=== PATIENT | female | born 1940 | race Caucasian/White ===

== ENCOUNTER 2016-12-16 10:33 | Inpatient (IN) | payer OTHER ==
[2016-12-16] MEDS ORDERED: ASPIRIN PO STA (10:53)
[2016-12-16] MEDS ORDERED: NITROGLYCERIN SL PRN (10:53)
[2016-12-16 11:01] LABS: MANUAL DIFF NEEDED? NO
[2016-12-16 11:05] LABS: BASO% 0.4 % (0.0-0.8); EOS# 0.04 X1000 (0.0-0.7); EOS% 0.5 % (0.0-10.0); HEMATOCRIT 38.8 % (37.0-47.0); LYMPH# 0.55 X1000 (1.2-3.4); LYMPH% 7.2 % (20.5-51.1); MCH 31.8 PG (27-31); MCHC 33.5 g/dL (33-37); MCV 94.9 FL (81-99); MONO# 0.63 X1000 (0.11-0.59); MONO% 8.3 % (1.7-9.3); MPV 10.3 FL (7.4-10.4); NEUT% 83.6 % (42.2-75.2); PLT 226 X1000 (130-400); RBC 4.09 XMIL (4.2-5.4)
[2016-12-16 11:28] LABS: AGAP 13; ALBUMIN 2.8 g/dL (3.5-5.0); ALKALINE PHOSPHATASE 48 U/L (32-104); BUN 23 mg/dL (8-22); CHLORIDE 92 mmol/L (98-107); CK PROFILE 35 U/L (24-173); COSMO 274; GOT 14 U/L (10-30); GPT 6 U/L (10-36); MAGNESIUM 1.6 mg/dL (1.5-2.7); POTASSIUM 3.3 mmol/L (3.5-5.1); SODIUM 133 mmol/L (136-145); TCO2 28 mmol/L (25-35); TOTAL BILIRUBIN 0.64 mg/dL (0.20-1.00); TOTAL PROTEIN 6.9 g/dL (6.3-8.3)
--- NOTE | 2016-12-16 11:40 | PROVIDER DOCUMENTATION ---
HPI-Respiratory General - General Chief Complaint: Shortness of Breath Stated Complaint: Shortness of Breath Time Seen by Provider: 12/16/16 11:09 Source: patient, family Allergies/Adverse Reactions: Patient Allergies Allergy/AdvReac Type Severity Reaction Status Date / Time morphine AdvReac NAUSEA/VOMI Verified 12/08/16 18:09 TING Home Medications: Home Medication List Medication Instructions Recorded Confirmed Last Taken Type Glipizide [Glipizide ER] 10 mg PO DAILY 01/12/15 12/16/16 12/08/16 08:30 History LISINOpril [Prinivil] 20 mg PO DAILY 12/12/15 12/16/16 12/08/16 08:30 History Benzonatate [Tessalon] 100 mg PO TID PRN PRN #20 capsule 12/08/16 12/16/16 Unknown Rx Hydrocodone/Acetaminophen [[place] 1 tab PO TID PRN 12/16/16 12/16/16 Unknown History 5-325 Tablet] Omeprazole [Prilosec] 1 tab PO DAILY 12/16/16 12/16/16 Unknown History - History of Present Illness-Resp Nature of Presenting Problem: patient is a 76 y/o F that presents to the Er after going to [facility] for chemo but was found to be short of breath and o2 saturation in the 70s. patient has lung ca in which it was dx she is on her second round of chemo. patient reports having cough and congestion since diagnosis but in the past week nothing having sputum with it, usually has white bubbling sputum. reports more weakness than normal. denies chest pain. O2 saturation was 86% on RA at triage. Quality of Pain: reports: tightness Severity in ED: reports: moderate Onset/Duration: reports: unsure, 1 week ago Timing: reports: still present, constant Context: reports: recent chemotherapy, multiple patients with similar complaints Cough Quality/Degree: reports: moderate, dry cough Episode Frequency: chronic episodes Current Respiratory Medication Therapy: Initiated see nurses note Modifying Factors: worse with: exertion, coughing Associated Symptoms: reports: cough, shortness of breath, short of breath, wheezing. denies: fever/chills, flu-like symptoms, nasal congestion, nasal drainage Similar Symptoms Previously?: Yes Recently seen or treated by another doctor?: Yes Review of Systems - Adult - REVIEW OF SYSTEMS - ADULT Constitutional: denies: chills, fever Eyes: reports: no symptoms reported Ears, Nose, Mouth & Throat: denies: ear pain, sinus problem, throat pain, throat swelling Cardiovascular: denies: chest pain, palpitations, syncope Respiratory: reports: cough, dyspnea on exertion, shortness of breath, wheezing Gastrointestinal: denies: abdominal pain, diarrhea, nausea, vomiting Genitourinary: reports: no symptoms reported Musculoskeletal: reports: muscle weakness. denies: back pain, joint pain Integumentary: reports: no symptoms reported Neurological: reports: no symptoms reported Psychiatric: reports: no symptoms reported Endocrine: reports: no symptoms reported Hematologic/Lymphatic: reports: no symptoms reported Allergic/Immunologic: reports: no symptoms reported All Other Systems: Reviewed and Negative Past History - Adult - PAST MEDICAL HISTORY-ADULT Review of Records: reports: Nursing Assessment Review, Medications Reviewed Cardiovascular: reports: HTN, heart valve problem Respiratory: reports: COPD, cancer (lung) Endocrine/Immune: reports: Diabetes - PRIOR SURGERIES/PROCEDURES Surgical/Procedure History: reports: appendectomy, hernia repair (colostomy previously), bowel surgery - IMMUNIZATION STATUS Childhood Immunizations: See Nurse Assessment Flu Vaccine: See Nurse Assessment - FAMILY HISTORY Family History: reviewed, not pertinent - SOCIAL HISTORY Smoking: quit greater than 1 year, cigarettes Living Situation: family Physical Exam-General - PHYSICAL EXAM-ADULT Initial Vital Signs Reviewed: Yes - CONSTITUTIONAL General Appearance: alert, mild distress, other (chronic ill appearing) - EYES Eyes: PERRL/EOMI, pink conjunctivae - HEAD, EARS, NOSE, MOUTH & THROAT HENMT: normocephalic/atraumatic, moist mucous membranes, normal ENT inspection - NECK Neck: full range of motion, normal inspection. negative: lymphadenopathy - RESPIRATORY Respiratory: no respiratory distress, no accessory muscle use, rhonchi ( scattered throughout), wheezing - CARDIOVASCULAR Cardiovascular: no edema, no JVD - GASTROINTESTINAL (ABDOMEN) Abdominal Exam: normal bowel sounds, non tender, soft, no organomegaly - MUSCULOSKELETAL Back Exam: no CVA tenderness, no vertebral tenderness Extremity: normal range of motion, normal inspection, no pedal edema - SKIN Integumentary: normal color, warm/dry - NEUROLOGIC Neurologic: grossly normal, no motor/sensory deficits - PSYCHIATRIC Psych/Mental Status: normal mood/affect, normal thought content, normal thought process, oriented x 3 Progress - PLAN OF CARE/RESULTS Progress/Plan/Lab Results: plan of care-xray, meds, fluids, labs Vital Signs Temp Pulse Resp BP Pulse Ox 12/16/16 12:04 81 16 93 L 12/16/16 11:12 83 31 H 113/69 94 L 12/16/16 10:36 98.0 F 87 28 H 107/45 86 L morphine Adverse Reaction (Verified 12/08/16 18:09) NAUSEA/VOMITING Glipizide [Glipizide ER] 10 mg PO DAILY 01/12/15 LISINOpril [Prinivil] 20 mg PO DAILY 12/12/15 Benzonatate [Tessalon] 100 mg PO TID PRN PRN #20 capsule 12/08/16 Hydrocodone/Acetaminophen [[place] 5-325 Tablet] 1 tab PO TID PRN 12/16/16 Omeprazole [Prilosec] 1 tab PO DAILY 12/16/16 Laboratory 12/16/16 12/16/16 12/16/16 10:40 10:40 10:40 WBC RBC Hgb Hct MCV MCH MCHC RDW Std Deviation Plt Count MPV Immature Gran % (Auto) Neut % (Auto) Lymph % (Auto) [place] % (Auto) Eos % (Auto) Baso % (Auto) Immature Gran # (Auto) Neut # (Auto) Lymph # (Auto) [place] # (Auto) Eos # (Auto) Baso # (Auto) PT 12.2 H INR 1.15 PTT (Actin FS) 28.5 D-Dimer 1.08 H Sodium Potassium Chloride Carbon Dioxide Anion Gap BUN Creatinine Estimated GFR/1.73 m2 BUN/Creatinine Ratio Glucose Calculated Osmolality Calcium Magnesium Total Bilirubin AST ALT Alkaline Phosphatase Creatine Kinase Troponin T < 0.010 Total Protein Albumin Globulin Albumin/Globulin Ratio 12/16/16 12/16/16 10:40 10:40 WBC 7.62 RBC 4.09 L Hgb 13.0 Hct 38.8 MCV 94.9 MCH 31.8 H MCHC 33.5 RDW Std Deviation 12.7 Plt Count 226 MPV 10.3 Immature Gran % (Auto) 0.0 Neut % (Auto) 83.6 H Lymph % (Auto) 7.2 L [place] % (Auto) 8.3 Eos % (Auto) 0.5 Baso % (Auto) 0.4 Immature Gran # (Auto) 0.00 Neut # (Auto) 6.37 Lymph # (Auto) 0.55 L [place] # (Auto) 0.63 H Eos # (Auto) 0.04 Baso # (Auto) 0.03 PT INR PTT (Actin FS) D-Dimer Sodium 133 L Potassium 3.3 L Chloride 92 L Carbon Dioxide 28 Anion Gap 13 BUN 23 H Creatinine 0.8 Estimated GFR/1.73 m2 > 60 BUN/Creatinine Ratio 29 Glucose 178 H Calculated Osmolality 274 Calcium 9.0 Magnesium 1.6 Total Bilirubin 0.64 AST 14 ALT 6 L Alkaline Phosphatase 48 Creatine Kinase 35 Troponin T Total Protein 6.9 Albumin 2.8 L Globulin 4.1 Albumin/Globulin Ratio 0.7 Orders Category Date Time Status Cardiac Monitoring DIRECTED Care 12/16/16 10:53 Active Saline Loc NOW Care 12/16/16 10:53 Active CHEST-2 VIEWS [RAD] Stat Exams 12/16/16 10:53 Draft BLOOD CULTURE [BLDCUL] Stat Lab 12/16/16 13:06 Results CBC WITH ELECTRONIC DIFF [HEME] Stat Lab 12/16/16 10:40 Completed CK PROFILE [SP CHEM] Stat Lab 12/16/16 10:40 Completed COMPREHENSIVE METABOLIC PANEL [CHEM] Stat Lab 12/16/16 10:40 Completed D-DIMER [CHEM] Stat Lab 12/16/16 10:40 Completed MAGNESIUM [CHEM] Stat Lab 12/16/16 10:40 Completed PRO B-NATRIURETIC PEPTIDE Stat Lab 12/16/16 10:40 Ordered PRO B-NATRIURETIC PEPTIDE Stat Lab 12/16/16 10:40 Received PROTIME WITH INR [COAG] Stat Lab 12/16/16 10:40 Completed PROTIME WITH INR [COAG] Stat Lab 12/16/16 10:40 Ordered PTT [COAG] Stat Lab 12/16/16 10:40 Completed PTT [COAG] Stat Lab 12/16/16 10:40 Ordered TROPONIN T Stat Lab 12/16/16 10:40 Completed TROPONIN T Stat Lab 12/16/16 10:40 Ordered Albuterol 2.5MG/Ipratrop 0.5MG [Duoneb (A & A)] Med 12/16/16 11:44 Discontinued 3 ml INH NOW ONE Aspirin Med 12/16/16 10:53 Discontinued 325 mg PO STAT STA Nitroglycerin Sl [Nitroglycerin] Med 12/16/16 10:53 Active 0.4 mg SL Q5M PRN PRN Piperacil/Tazobact 3.375 gm/Ns [Zosyn 3.375 gm/Ns] 50 Med 12/16/16 12:45 Active ml IV Q6H Vancomycin 1 gm/Ns 250 ml Med 12/16/16 12:43 Discontinued IV NOW Aerosol Treatments Routine Oth 12/16/16 11:44 Completed Aerosol Treatments Stat Oth 12/16/16 11:44 Completed EKG [EKG] Stat Ther 12/16/16 10:53 Ordered - REASSESSMENT Reassessment #1 Time Reassessed: 13:20 Status: worsening Reassessment Comment: patient is breathing better(productive cough)now she is hypotensive 80/40s - EKG 1 Time of EKG reading by physician:: 10:50 EKG Read and Signed by:: Jaison Lee EKG Interpretation (*Must complete 3 of following elements*): Abnormal Rate: 86 Rhythm: Acclerated junctional ST Wave: non-specific ST changes Comments: prolonged qt - XRAY 1 XRAY Study: Chest Impression: Abnormal XRAY Interpretation: worsening Lt effusion and/or atelectasis - CONSULTS/PCP/HOSPITALIST Notification #1 *Consult/PCP/Hospitalist*: Time Discussed: 14:03 Reason/Comments: Dyspnea, hypotensive, bronchitis Consult Disposition: Will see in ED, Admit Departure - Departure Time of Disposition Order: 14:06 DIAGNOSIS: Hypotension, Weakness, Lung cancer Dyspnea Qualifiers: Dyspnea type: dyspnea on exertion Qualified Code(s): R06.09 - Other forms of dyspnea Disposition: ADMITTED INPATIENT 09 Certified Medical Emergency: Emergent Condition: Stable - Critical Care Note Total Time (mins): 40 Critical Care Statement: This patient required my direct personal management to treat or rule out processes, the absence of which, could potentiallly result in sudden, clinically significant life or limb threatening deterioration. Attestation - Scribe Verification/Attestation Scribe:: Olaf Sanders Acting as Scribe for:: Jaison Lee Scribe documention review:: This chart was documented by a scribe and accurately reflects the service the provider performed and the decisions made by the provider. Physician Attestation - Physician Attestation I, the provider, attest to the following statement:: Jaison Lee Physician documentation Attestation:: This documentation recorded by the scribe accurately reflects the service I personally performed and the decisions made by me.
[2016-12-16] MEDS ORDERED: DUONEB (A & A) INH ONE (11:44)
[2016-12-16] MEDS ORDERED: VANCOMYCIN 1 GM/NS 250 ML IV ONE (12:43)
[2016-12-16] MEDS ORDERED: ZOSYN 3.375 GM/NS 50 ML IV SCH (12:45)
--- NOTE | 2016-12-16 13:28 | Diag Imaging Result Document ---
PROCEDURE NAME: CHEST-2 VIEWS - 12/16/2016 TWO VIEWS OF THE CHEST: FINDINGS: There is scarring and volume loss, particularly in the left apex, presumably related to granulomatous disease. There is also blunting of the left costophrenic angle which is worse than on 12/08/2016. The inspiration is not as optimal as on the previous study, however. IMPRESSION: Apparent worsening of pleural fluid on the left.
[2016-12-16 13:54] LABS: INR 1.15; PROTIME 12.2 Seconds (9.2-11.7); PTT 28.5 Seconds (22.0-36.0)
[2016-12-16 14:36] LABS: ALLEN TEST YES; BE 5.9 mmoll (-3.0-3.0); BLOOD TYPE ARTERIAL; DRAW SITE R RADIAL; METHB 1.4 % (0.0-1.5); MODALITY CANNULA; O2(CT) 15.5 mL/dL (15.0-23.0); PO2(98.6) 73 mmHg (60-100); SAMPLE BLOOD; SAO2 96.9 % (95.0-100.0); THB 11.8 g/dL (11.5-17.4); pH(98.6) 7.36 (7.35-7.45)
[2016-12-16 14:37] LABS: PCO2(98.6) 58 mmHg (35-45)
[2016-12-16] MEDS ORDERED: NS 500 ML IV ONE (15:11)
[2016-12-16] MEDS ORDERED: KLOR-CON PO ONE (15:14)
[2016-12-16] MEDS ORDERED: VANCOMYCIN IV PER PHARMACY MISC SCH (15:15)
[2016-12-16] MEDS ORDERED: LEVOPHED 8 MG in D5 1/2 NS 250 ML IV SCH (15:15)
[2016-12-16] MEDS ORDERED: DUONEB (A & A) INH PRN (15:15)
--- NOTE | 2016-12-16 15:30 | Diag Imaging Result Document ---
PROCEDURE NAME: ANGIOGRAM/PULMONARY ARTERIES - 12/16/2016 CT OF THE CHEST WITH INTRAVENOUS CONTRAST: FINDINGS: The current study is compared with that of 11/21/2015. There are no filling defects in the pulmonary arteries. There is extensive atherosclerotic calcification in the aorta and the left subclavian artery as well as the left carotid orifice and brachiocephalic orifice. There is pleural thickening throughout much of the left apex. This has worsened since the previous study. The right paratracheal adenopathy which was present at the time of the previous study has improved. There is some apparent worsening of the right hilar adenopathy and the posterior. There is apparent attenuation of the both the lower lobe and middle lobe bronchi. There is worsened consolidation of the left lower lobe, particularly the superior segment compared to the previous study. There continues to be patchy opacity and some cavities in the left upper lobe. Some of these more posteriorly located in the left upper lobe were not present previously. There is a greater degree of desmoplastic change and volume loss than on the previous study. There are increased reticulonodular interstitial opacities, particularly seen anteriorly over the right upper lobe and left upper lobe. There is consolidation in the central portion of the right middle lobe adjacent to the major fissure which was not the case previously. There are multiple subcentimeter nodules in the right middle lobe and lingula which were not present previously and are most likely metastatic lesions. IMPRESSION: 1. No evidence of pulmonary emboli. 2. Metastatic disease and other changes since 11/21/2015, as described above.
[2016-12-16] MEDS: LEVAQUIN 750 MG/D5W 150 ML IV SCH (16:00)
[2016-12-16] MEDS: HUMALOG SUBQ SCH ×2 (16:00→23:58)
[2016-12-16 16:01] LABS: HEMOGLOBIN A1C 5.6 % (4.8-6.0)
[2016-12-16 16:03] LABS: FREE T4 1.18 ng/dL (0.93-1.70)
[2016-12-16] MEDS ORDERED: KLOR-CON ONE (16:41)
[2016-12-16] MEDS: NS 1,000 ML IV SCH ×2 (16:46→23:57)
[2016-12-16] MEDS: LOVENOX SUBQ SCH (17:02)
[2016-12-16] MEDS: PROTONIX IV SCH (17:02)
[2016-12-16] MEDS ORDERED: VANCOMYCIN 500 MG/NS 100 ML IV ONE (17:30)
--- NOTE | 2016-12-16 18:11 | ECHO REPORT ---
ORDER DATE: 12/16/2016 INTERPRETING PHYSICIAN: Dr. Lisa CLINICAL INDICATIONS: Iarupen-zsty-clys-old female, hypotension, heart failure, dyspnea. M-MODE MEASUREMENTS: Right ventricle: 2.8 cm. Left ventricle end diastole: 5.2 cm. Left ventricle end systole: 2.8 cm. Posterior wall: 1.0 cm. Interventricular septum: 1.1 cm. Left atrium: 3.3 cm. Aortic root: 3.5 cm. SUMMARY OF 2-DIMENSIONAL IMAGING: The left ventricular function is normal, ejection fraction of 67%. The wall motion of the left ventricle is normal. Right ventricle appears to be normal. The atria appear to be normal. Mitral valve looks normal. Color flow mapping indicates mild degree of regurgitation. Pulse wave Doppler of mitral inflow shows mild degree of reversal of the E and the A wave. Tissue Doppler of septal and lateral mitral annulus averages 4-1/2 cm. There is impaired left ventricular relaxation. Tricuspid valve shows moderate to moderately severe degree of regurgitation. Inferior vena cava is at the upper limits of normal. The pulmonary pressure is estimated at 76 mmHg. Pulmonic valve looks normal. Color flow mapping indicates mild degree of regurgitation. The aortic valve is heavily calcified. The color flow mapping shows trace regurgitation. Continuous wave Doppler across the outflow tract of the left ventricle indicates the presence of a maximum gradient of 117 mmHg, mean gradient 75 mmHg. The LVOT measures 2.3 cm. The LVOT VTI measures 27 cm. The aortic valve VTI measures 150 cm. The aortic valve area estimated in this particular case is 0.74 cm2, consistent with severe degree of aortic stenosis. The aortic valve area index is 0.43 cm2 per m2 of body surface area, consistent with very severe aortic stenosis. There is no pericardial effusion, masses, nor thrombus. SUMMARY: This study showed: 1. Excellent left ventricular systolic function. 2. Severe degree of aortic stenosis, mean gradient 75 mmHg, valve area 0.7 cm2 with an index of 0.4 cm2 per m2 of body surface area. 3. Impaired left ventricular relaxation. 4. Significant pulmonary hypertension estimated at 76 mmHg. Clinical correlation is strongly recommended. Patient should be referred to cardiovascular surgical team for opinion regarding operability of this case.
--- NOTE | 2016-12-16 18:16 | HISTORY AND PHYSICAL ---
ONCOLOGIST: Dr. Denisse Garcias. PHYSICAL THERAPY DIRECTOR: Dr. Nash. CHIEF COMPLAINT: Hypotension. HISTORY OF PRESENT ILLNESS: Mrs. Lazaro is a pleasant but unfortunate 76-year-old female, who has a history of non-small cell lung cancer, followed by Dr. Garcias and Dr. Nash, also with a history of type 2 diabetes and hypertension, who presents today from [facility] for hypotension. She states she has been in her normal state of health for the most part. The patient was actually here last week as the son reports she was coughing up large chunks of blood and tissue. She was sent home from the ER at that time with unspecified hemoptysis. Since that time, she has been somewhat weak but has not had any worsening shortness of breath. There has been no chest pain, no new or worsening hemoptysis. She went to [facility] today as scheduled for chemotherapy and she was noted to be hypotensive with a systolic blood pressure in the 70s reportedly. At that time, EMS was called and she was sent here. Her initial vital signs have been somewhat low, but in the past hour she is noted to be in the made 80's systolically requiring Levophed. She is not tachycardic, she is not febrile, and she does not have leukocytosis. Chest x-ray reveals worsening left-sided pleural effusion, subsequent CTA shows new pneumonia and worsening metastatic disease. Given her hypotension and sepsis, we are going to admit her to the ICU. PAST MEDICAL HISTORY: 1. Non-small cell lung cancer followed by Dr. Nash and Dr. Garcias. 2. Diabetes mellitus type 2. 3. Hypertension. 4. GERD. PAST SURGICAL HISTORY: Bronchoscopy with lung biopsy, large bowel resection with colostomy and reversal of colostomy secondary to apparent bowel perforation, appendectomy, cataract removal both eyes. SOCIAL HISTORY: Patient quit smoking 20 years ago. He is and lives with her and her son. She reports occasional alcohol use. No drug use. FAMILY HISTORY: Mother from an AL. Father with accidental fire. She has a sister who is from a blood clot, and she also has significant history of dementia on her side of the family. REVIEW OF SYSTEMS: A 10 point review of systems obtained and found to be negative with the exception of the HPI. ALLERGIES: Morphine. HOME MEDICATIONS: Glipizide ER 10 mg daily. [place] 1 each 3 times a day. Prinivil 20 mg daily. Prilosec 20 mg daily. Tessalon 100 mg p.o. t.i.d. PHYSICAL EXAMINATION: VITAL SIGNS: Blood pressure is 85/40, heart rate is 60, respiratory rate is 18, O2 saturation is 90% on 3 L nasal cannula, temperature is 97.6 degrees. GENERAL: This is a frail and chronically ill appearing, 76-year-old female, lying in hospital bed. No acute distress. NEUROLOGIC: The patient is awake, alert, and oriented. She follows commands without focal deficits. HEENT: Head is atraumatic and normocephalic. Her pupils are equal, round, reactive to light. Oral mucosa is moist. Trachea is midline. CHEST: Rhonchorous sounds heard throughout the left lung and diminished overall throughout. Symmetrical chest rise is noted bilaterally. CV: Regular rate and rhythm. S1-S2 is noted. There is a 2/6 systolic ejection murmur noted. GI: Soft, nondistended, nontender. Bowel sounds are positive. EXTREMITIES: No edema, clubbing or cyanosis. Pulses are diminished but palpable bilaterally. DIAGNOSTIC DATA: Chest x-ray shows worsening left lower lung pleural effusion and there is scarring and volume loss in the left apex. CTA shows no pulmonary emboli, new left-sided infiltrate consistent with pneumonia, and worsening metastatic disease. EKG shows normal sinus rhythm with PACs in a bigeminal pattern. WBC 7.62, hemoglobin 13, hematocrit 38.8, platelet count 226,000, PT 12.2, INR 1.15. D-dimer 1.08. ABG on 3 L nasal cannula; pH 7.36, CO2 58, O2 73, bicarbonate 29.4, lactate 0.7. Sodium 133, potassium 3.3, chloride 92, CO2 20, anion gap 13, BUN 23, creatinine 0.8, glucose 178, calcium 9, magnesium 1.6, bilirubin 0.64, AST 14, ALT 6, alkaline phosphatase 48. Troponin negative. ProBNP 7616. Albumin 2.8. ASSESSMENT AND PLAN: 1. Sepsis: Source is to be her pneumonia, blood cultures and lactic acid have been obtained. We will initiate broad-spectrum antibiotics, and fluids and vasopressors per protocol. She will be going to the ICU for close observation. 2. Pneumonia: Blood cultures have been obtained. We will continue antibiotics, breathing treatments, aggressive pulmonary toilet and oxygen as needed. We will consult with Dr. Nash who is her primary guard captain. 3. Non-small cell lung cancer: We will consult Dr. Garcias for any further treatment and for assistance. Her CT does show worsening metastatic disease. We will continue to monitor this closely. 4. Hypokalemia and hyponatremia: We will replace these appropriately and follow along with her electrolytes daily. 5. Diabetes mellitus: We will check hemoglobin A1c. Add pattern sugars and sliding scale insulin. Withhold her glipizide for now. 6. Severe protein calorie malnutrition: We will consult Nutrition and order a diabetic diet and encourage p.o. intake. 7. ICU prophylaxis with Lovenox and Protonix. 8. Further recommendations to follow. Dictated by SKIP Washburn for Castro Oneill MD
[2016-12-16] MEDS: ZOSYN 3.375 GM/NS 50 ML IV SCH (20:11)
[2016-12-16] MEDS: DUONEB (A & A) INH SCH (22:00)
[2016-12-17] MEDS: ZOSYN 3.375 GM/NS 50 ML IV SCH ×4 (01:51→21:59)
[2016-12-17] MEDS: DUONEB (A & A) INH SCH ×4 (03:25→21:30)
[2016-12-17 04:47] LABS: ALLEN TEST YES; BE 1.1 mmoll (-3.0-3.0); BLOOD TYPE ARTERIAL; DRAW SITE R RADIAL; METHB 1.5 % (0.0-1.5); O2(CT) 15.9 mL/dL (15.0-23.0); PO2(98.6) 72 mmHg (60-100); SAMPLE BLOOD; SAO2 95.3 % (95.0-100.0); THB 12.3 g/dL (11.5-17.4); pH(98.6) 7.27 (7.35-7.45)
[2016-12-17 04:49] LABS: MODALITY CANNULA; PCO2(98.6) 64 mmHg (35-45)
[2016-12-17 05:24] LABS: MANUAL DIFF NEEDED? NO
[2016-12-17 05:30] LABS: BASO% 0.4 % (0.0-0.8); EOS% 1.4 % (0.0-10.0); HEMATOCRIT 36.6 % (37.0-47.0); IMM GRAN# 0.02 X1000 (0.0-0.04); IMM GRAN% 0.3 % (0.0-0.5); LYMPH# 0.44 X1000 (1.2-3.4); LYMPH% 6.3 % (20.5-51.1); MCH 31.7 PG (27-31); MCHC 32.8 g/dL (33-37); MCV 96.6 FL (81-99); MONO# 0.89 X1000 (0.11-0.59); MONO% 12.7 % (1.7-9.3); NEUT% 78.9 % (42.2-75.2); PLT 181 X1000 (130-400); RBC 3.79 XMIL (4.2-5.4)
--- NOTE | 2016-12-17 05:37 | EKG Report ---
Test Performed on : 12/16/2016 10:50:43 AM Test Reason : SOB Blood Pressure : / mmHG Vent. Rate : 086 BPM Atrial Rate : 086 BPM P-R Int : 000 ms QRS Dur : 098 ms QT Int : 414 ms P-R-T Axes : 000 041 089 degrees QTc Int : 495 ms Accelerated Junctional rhythm. Nonspecific ST and T wave abnormality Prolonged QT Abnormal ECG When compared with ECG of 03-NOV-2016 10:45, Junctional rhythm. has replaced Sinus rhythm. Unconfirmed Result
[2016-12-17] MEDS: HUMALOG SUBQ SCH ×4 (06:26→21:58)
[2016-12-17 07:03] LABS: AGAP 13; BUN 15 mg/dL (8-22); CALCIUM 8.3 mg/dL (8.8-10.2); CHLORIDE 98 mmol/L (98-107); COSMO 271; POTASSIUM 3.6 mmol/L (3.5-5.1); SODIUM 136 mmol/L (136-145); TCO2 25 mmol/L (25-35)
--- NOTE | 2016-12-17 07:44 | Diag Imaging Result Document ---
PROCEDURE NAME: CHEST-PORTABLE - 12/17/2016 SINGLE FRONTAL RADIOGRAPH OF THE CHEST: COMPARISON: 12/16/2016. FINDINGS: Right chest port is stable. Small left effusion is probably stable given slight differences in positioning. There are increased interstitial markings throughout the left lung as compared to the previous study. No new consolidations are identified on the right. Cardiac silhouette is stable. IMPRESSION: Increasing interstitial infiltrate throughout the left lung as described.
[2016-12-17 08:43] LABS: HEMATOCRIT 37.2 % (37.0-47.0); MCH 31.7 PG (27-31); MCHC 32.3 g/dL (33-37); MCV 98.4 FL (81-99); MPV 9.9 FL (7.4-10.4); RBC 3.78 XMIL (4.2-5.4)
[2016-12-17 09:10] LABS: AGAP 10; BUN 13 mg/dL (8-22); CALCIUM 8.3 mg/dL (8.8-10.2); CHLORIDE 96 mmol/L (98-107); COSMO 273; POTASSIUM 3.7 mmol/L (3.5-5.1); SODIUM 136 mmol/L (136-145); TCO2 30 mmol/L (25-35)
[2016-12-17 10:25] LABS: BLOOD TYPE ARTERIAL; SAMPLE BLOOD
[2016-12-17 10:40] LABS: ALLEN TEST YES; DRAW SITE R RADIAL; METHB 1.8 % (0.0-1.5); O2(CT) 15.1 mL/dL (15.0-23.0); PO2(98.6) 65 mmHg (60-100); THB 11.7 g/dL (11.5-17.4); pH(98.6) 7.35 (7.35-7.45)
[2016-12-17 10:43] LABS: MODALITY CANNULA; PCO2(98.6) 58 mmHg (35-45)
--- NOTE | 2016-12-17 13:31 | PROGRESS NOTE ---
DATE: 12/17/2016 SUBJECTIVE: Today Ms. Lazaro referred to be doing relatively fine. Continues to have some cough. Blood pressure is now normal. OBJECTIVE: Vital signs: Blood pressure is 140/69, pulse of 89, respirations 21, temperature 99.7 degrees. General: Ms. Lazaro is a 76-year-old female. She is in bed, in mild respiratory distress. HEENT: Mucosa is pink and moist. Anicteric. Acyanotic. Neck: Supple. Chest: Air entry is bilaterally reduced. There is end-expiratory rhonchi bilateral. Cardiovascular: Regular rate and rhythm. Chest: This is a port on the right anterior chest wall. Extremities: No pedal edema. EMPLOYER RELATIONS REPRESENTATIVE: Patient is alert and oriented. Abdomen: Soft. It is mildly distended. There is old anterior wall surgical scar. LABORATORY DATA: WBC 7.12, hemoglobin is 12.0, platelet count of 181,000. Chemistry: Sodium is 136, potassium is 3.7, chloride 96, bicarb is 30, glucose is normal. ABG, pH 7.35, pCO2 of 58, PO2 was 65. So far, blood cultures have been unremarkable. ASSESSMENT: 1. Hypotension on presentation and also at the patient's physician's office. Unclear the etiology. I think this is probably due to sepsis. 2. Multifocal pneumonia. Patient is currently on antibiotics. 3. History of squamous cell poorly differentiated lung cancer. A CTA of the lungs done yesterday actually shows some worsening of the disease in the lungs. The patient is under the care of Dr. Garcias. I understand she is currently getting Opdivo after she decided against traditional chemotherapy. 4. Diabetes mellitus, stable. 5. Protein calorie malnutrition. Will encourage supplements. 6. Physical deconditioning. GENERAL PLAN: I think patient is relatively stable. Blood pressure is much better. She did not need pressors we are still pending the blood cultures and sputum culture. Patient is stable. Will move her from the ICU to a regular floor. We are discontinuing the IV fluids because of worsening pulmonary edema on the chest x-ray today. Will give the patient a dose of Lasix to see if that helps. We are going to transfer the patient from the ICU to the regular floor.
--- NOTE | 2016-12-17 14:09 | CONSULTATION ---
DATE OF CONSULTATION: 12/17/2016 REFERRING PHYSICIAN: Dr. Oneill. CHIEF COMPLAINT: Hypotension. HISTORY OF PRESENT ILLNESS: This is a 76-year-old female with a past medical history of non-small cell lung cancer, diabetes, hypertension, and GERD, that presented to the hospital with complaints of hypotension. Apparently she was sent here from [facility]. She denies any chest pain, abdominal pain, nausea, vomiting, or diarrhea. She states she has been somewhat weak for the past few days. Diagnostics thus far have revealed a pneumonia and worsening metastatic disease. She has been admitted to the ICU for close observation for her sepsis and pneumonia. REVIEW OF SYSTEMS: A 10-point review of systems was conducted and pertinent as noted in the HPI, otherwise noncontributory. PAST MEDICAL HISTORY: As mentioned in HPI, otherwise, noncontributory. PAST SURGICAL HISTORY: Bronchoscopy with lung biopsy, large bowel resection with colostomy and reversal of colostomy secondary to apparent bowel perforation, appendectomy, cataract removal in both eyes. SOCIAL HISTORY: The patient quit smoking 20 years ago. and lives at home with her and son. Occasional alcohol use. No drug use. FAMILY HISTORY: Notable for [place], blood clots and dementia. ALLERGIES: Morphine. ACTIVE MEDICATION: DuoNeb, Lovenox, Humalog, Levaquin, vancomycin, Protonix, Zosyn. PHYSICAL EXAMINATION: Vital signs: Temperature 99 degrees, heart rate 86, respiratory rate 33, blood pressure 130/59, oxygen saturation 94%. General: Frail chronically ill-appearing 76-year- old female, lying in bed, no acute distress. HEENT: Normocephalic and atraumatic. PERRL. Cardiovascular: Regular rate and rhythm. S1, S2 present. Chest: Reduced entry with rhonchorous lung sounds on the left. Abdomen: Soft, nontender, nondistended. Bowel sounds present. Extremities: No edema noted. Neurologic: Alert and oriented and does follow commands. LABS AND INVESTIGATIONS: WBC 7.02, RBC is 3.7, hemoglobin 12, hematocrit 36.6, platelet count 181,000. Sodium 136, potassium 3.6, chloride 98, carbon dioxide 25, anion gap 13. BUN 15. Creatinine 0.6. Glucose 69. Blood gas reveals a pH of 7.27, pCO2 of 64, PO2 of 72, HC03 25.7. Chest x-ray performed 12/17/2016 shows increased interstitial infiltrate throughout the left lung. ASSESSMENT/PLAN: This is a 76-year-old female with past medical history mentioned in the HPI that presented to the hospital with complaints of hypotension. She was found to be septic and placed in the ICU. Her sepsis is likely secondary to her pneumonia. Blood cultures pending. Continue broad-spectrum antibiotics with fluid resuscitation. Electrolyte replacement. Pattern fingersticks with sliding scale insulin. Inhaled bronchodilators, DVT and GI prophylaxis. Further recommendations pending diagnostic studies. Thank you for the courtesy of this consult. Dictated by SKIP Ascencio for Valdemar Tucker MD
[2016-12-17] MEDS: LEVAQUIN 750 MG/D5W 150 ML IV SCH (17:13)
[2016-12-17] MEDS: PROTONIX IV SCH (17:14)
[2016-12-17] MEDS: LOVENOX SUBQ SCH (17:14)
[2016-12-17] MEDS: SODIUM CHLORIDE 0.9% INJ SCH (17:14)
--- NOTE | 2016-12-17 18:24 | CONSULTATION ---
DATE OF CONSULTATION: 12/17/2016 CONSULT REQUESTED BY: Dr. Oneill. REASON FOR CONSULT: For lung cancer, patient known. HISTORY OF PRESENT ILLNESS: Ms. Lazaro is a 76-year-old, female, who we know as we are currently treating her for metastatic non-small cell lung cancer. The patient is currently receiving Opdivo with her last dose being on 12/02/2016. The patient was presenting to our office for followup prior to her next Opdivo dose when she started to experience low O2 saturations in the 70s and a low heart rate in the 40s. The patient was also lethargic. She was transported to the emergency department via ambulance. Patient was in approximately 4 weeks ago complaining of shortness of breath and cough. Chest x-ray was done at that time and showed infiltrates. She was given steroids, antibiotic, and nebulizer treatments. The patient was unable to complete the initial antibiotic therapy due to the antibiotic causing nausea and vomiting. Her breathing was better after having the nebulizer treatments. Those were continued. Her antibiotic however was changed. The patient was also in the ER about a week ago for hemoptysis. It appears that now she has pneumonia with sepsis. However, at this time she is doing much better and the plan is to move her to the floor later today. PAST MEDICAL HISTORY: 1. Lung cancer. 2. Diabetes mellitus type 2. 3. Hypertension. 4. GERD. PAST SURGICAL HISTORY: 1. Status post bronchoscopy. 2. Large bowel resection after a bowel perforation. She had a colostomy and then a reversal. 3. Appendectomy. 4. Cataract surgery. SOCIAL HISTORY: Patient lives with her son and . She is a former tobacco smoker but does not smoke currently. She denies any alcohol or drugs. FAMILY HISTORY: Positive for her mother, who had an CO. Her father in an accidental fire. Her sister of a blood clot. And she also has a family history of dementia. REVIEW OF SYSTEMS: As per the HPI. All else is negative or noncontributory. PHYSICAL EXAMINATION: Vital Signs: Temperature 99.7 degrees, heart rate 89, respirations 21, blood pressure 104/69, O2 saturations 93% on 4 L nasal cannula. General: female lying in hospital bed in the ICU. She is sitting up eating. No acute distress. HEENT: Head normocephalic, atraumatic. Eyes: Pupils equal, round, and reactive. Ears, nose, throat, neck and mouth: Oral mucosa appears to be normal. Gross auditory acuity is intact. Trachea midline. Cardiovascular: Patient has a loud systolic murmur heard on the left sternal border. Otherwise, regular rate and rhythm. Respiratory: The patient has bilateral rhonchi with scattered wheezing. Respiratory effort is overall slightly increased, so patient is in no acute respiratory distress. Abdomen: Soft, nondistended. Positive bowel sounds. Musculoskeletal: No bony abnormalities. Extremities: Patient has some trace bilateral lower extremity edema. Neurologic: Patient is alert and oriented. No focal motor deficits noted. LABORATORY STUDIES: White blood cells 7.12, hemoglobin 12.0, hematocrit 37.2, platelets 181,000. Sodium 136, potassium 3.6, chloride 98, CO2 25, BUN 15, creatinine 0.6, glucose 69. ProBNP is 4159. Blood cultures are currently pending. IMAGING: Chest x-ray shows increased interstitial infiltrate throughout the left lung. CT scan was compared to a CT scan done October 2015. It notes that there is some progression of disease. However, patient's last PET scan which was done September 2016 shows a mixed response. ASSESSMENT AND PLAN: 1. Metastatic non-small cell lung cancer. Patient is currently on Opdivo with her last treatment being on 12/02/2016. We will hold treatment at this time. 2. Pneumonia with sepsis. Improving. Continue IV antibiotics, nebulizer treatments, O2 and IV fluids. Plan is to admit the patient to the floor later today. Pulmonology is involved and has seen the patient. 3. Hypoxia secondary to #2. As per #2, improving overall. 4. Diabetes mellitus. Continue current management. I want to thank you for allowing us to participate in Ms. Lazaro's care while she is at [facility]. We will continue to follow along and adjust our treatment plan per her hospital course. Dictated by JESSICA Mcfarland for Denisse Garcias MD
[2016-12-18] MEDS: DUONEB (A & A) INH SCH ×4 (02:40→19:41)
[2016-12-18] MEDS: ZOSYN 3.375 GM/NS 50 ML IV SCH ×4 (02:45→21:50)
[2016-12-18] MEDS: SOLU-MEDROL IV SCH ×2 (04:00→10:51)
[2016-12-18 05:41] LABS: ALLEN TEST YES; BE 5.8 mmoll (-3.0-3.0); BLOOD TYPE ARTERIAL; DRAW SITE R RADIAL; METHB 1.3 % (0.0-1.5); O2(CT) 15.2 mL/dL (15.0-23.0); PO2(98.6) 69 mmHg (60-100); SAMPLE BLOOD; SAO2 97.2 % (95.0-100.0); THB 11.6 g/dL (11.5-17.4); pH(98.6) 7.37 (7.35-7.45)
[2016-12-18 05:43] LABS: MODALITY CANNULA; PCO2(98.6) 56 mmHg (35-45)
[2016-12-18] MEDS ORDERED: VANCOMYCIN 1,300 MG in NS 250 ML IV SCH (06:00)
[2016-12-18] MEDS: HUMALOG SUBQ SCH ×3 (06:01→21:50)
[2016-12-18 06:16] LABS: EOS# 0.01 X1000 (0.0-0.7); EOS% 0.2 % (0.0-10.0); HEMATOCRIT 36.2 % (37.0-47.0); HEMOGLOBIN 11.8 g/dL (12.0-16.0); LYMPH# 0.16 X1000 (1.2-3.4); LYMPH% 2.8 % (20.5-51.1); MANUAL DIFF NEEDED? YES; MCH 31.6 PG (27-31); MCHC 32.6 g/dL (33-37); MCV 96.8 FL (81-99); MONO# 0.33 X1000 (0.11-0.59); MONO% 5.7 % (1.7-9.3); NEUT% 91.3 % (42.2-75.2); PLT 172 X1000 (130-400); RBC 3.74 XMIL (4.2-5.4)
[2016-12-18 06:20] LABS: AGAP 10; BUN 10 mg/dL (8-22); CALCIUM 8.3 mg/dL (8.8-10.2); CHLORIDE 95 mmol/L (98-107); COSMO 274; POTASSIUM 3.2 mmol/L (3.5-5.1); SODIUM 136 mmol/L (136-145); TCO2 31 mmol/L (25-35)
[2016-12-18 07:36] LABS: BANDS 2 % (0-1); LYMPHS 4 % (21-51); MONO 3 % (1-9)
--- NOTE | 2016-12-18 07:37 | Diag Imaging Result Document ---
PROCEDURE NAME: CHEST-PORTABLE - 12/18/2016 ERECT AP PORTABLE CHEST AT 0600 HOURS: FINDINGS: There is apical pleural thickening on the left and increased density and volume loss throughout the left lung particularly in the left upper lobe. There is some patchy ill-defined opacity in the right lung as well which appears slightly worse than on the previous study of 12/17/2016. Otherwise, there has been no significant change. IMPRESSION: Patchy pneumonia and/or pulmonary edema.
[2016-12-18] MEDS ORDERED: KLOR-CON PO ONE (09:01)
[2016-12-18] MEDS ORDERED: MAGNESIUM SULFATE 2 GM/S.W.I. 50 ML IV ONE (10:00)
--- NOTE | 2016-12-18 12:43 | PROGRESS NOTE ---
DATE: 12/18/2016 SUBJECTIVE: Today Ms. Lazaro referred to be doing a lot better. Vitals have been stable. Blood pressure is unremarkable. I understand last night she developed episode of shortness of breath with wheezing and had to be attended to by the night staff. OBJECTIVE: Vital signs: Blood pressure is 116/59, pulse of 80, respiration is 18, temperature 97.8 degrees. Patient is saturating 94% on nasal cannula. General exam: Ms. Lazaro is a 73-year- old female. She is sitting up in bed, no distress. HEENT: Mucosa is pink and moist. Anicteric. Acyanotic. Neck: Supple. Chest: Air entry is bilaterally reduced. A few bibasilar crepitations. Cardiovascular: Regular rate and rhythm. There are about 3/6 murmur. Abdomen: Soft, nontender. There is an old anterior wall surgical scar. Extremities: No pedal edema. PIANO PLAYER: Patient is alert and oriented x4. There is no focal neurological deficit. LABORATORY DATA: CBC has been reviewed; nothing grossly abnormal. Chemistries reviewed; potassium is 3.2 and magnesium is 1.4. ASSESSMENT: 1. Hypotension on presentation due to sepsis. This is improving on antibiotics. 2. Hypoxemic respiratory failure due to underlying lung cancer and superimposed multifocal pneumonia. Patient is getting antibiotics for the acute problems. There is mixed respiratory failure (hypercarbia and hypoxemia). 3. Multifocal pneumonia. Sputum culture is positive for gram-negative ava. We will discontinue the vancomycin, and will be pending the final identification on the GNR to see we can switch this to oral medication. 4. History of squamous cell poorly differentiated lung cancer. Computed tomography angiography of the lung seems to show worsening of the underlying disease. Patient is being follow by Dr. Garcias. 5. Diabetes mellitus, stable. 6. Protein calorie malnutrition. 7. Physical deconditioning. GENERAL PLAN: We are going to continue with the double coverage of the antibiotics for gram- negative coverage. We will be waiting the final ID on the GNR. Hopefully, we might be able to send the patient home on p.o. antibiotics tomorrow.
[2016-12-18] MEDS: LOVENOX SUBQ SCH (16:03)
[2016-12-18] MEDS: PROTONIX IV SCH (16:03)
[2016-12-18] MEDS: SODIUM CHLORIDE 0.9% INJ SCH (16:03)
[2016-12-18] MEDS: LEVAQUIN 750 MG/D5W 150 ML IV SCH (16:03)
[2016-12-19] MEDS: ZOSYN 3.375 GM/NS 50 ML IV SCH ×2 (02:28→09:00)
[2016-12-19] MEDS: DUONEB (A & A) INH SCH ×4 (03:09→20:15)
[2016-12-19 03:46] LABS: ALLEN TEST YES; BE 4.3 mmoll (-3.0-3.0); BLOOD TYPE ARTERIAL; DRAW SITE R RADIAL; METHB 1.5 % (0.0-1.5); O2(CT) 24.3 mL/dL (15.0-23.0); PO2(98.6) 72 mmHg (60-100); SAMPLE BLOOD; SAO2 96.1 % (95.0-100.0); THB 18.6 g/dL (11.5-17.4); pH(98.6) 7.31 (7.35-7.45)
[2016-12-19 03:48] LABS: MODALITY CANNULA; PCO2(98.6) 67 mmHg (35-45)
[2016-12-19] MEDS: HUMALOG SUBQ SCH ×5 (06:28→20:46)
[2016-12-19] MEDS: LANTUS SUBQ SCH (08:40)
[2016-12-19 09:07] LABS: HEMOGLOBIN 11.9 g/dL (12.0-16.0); IMM GRAN# 0.02 X1000 (0.0-0.04); IMM GRAN% 0.2 % (0.0-0.5); MANUAL DIFF NEEDED? YES; MPV 10.4 FL (7.4-10.4)
[2016-12-19 09:21] LABS: HEMATOCRIT 36.3 % (37.0-47.0); LYMPH# 0.25 X1000 (1.2-3.4); MCH 31.2 PG (27-31); MCHC 32.8 g/dL (33-37); MONO# 0.91 X1000 (0.11-0.59); MONO% 7.2 % (1.7-9.3); NEUT% 90.6 % (42.2-75.2); PLT 192 X1000 (130-400); RBC 3.82 XMIL (4.2-5.4)
[2016-12-19 09:37] LABS: BANDS 4 % (0-1); LYMPHS 4 % (21-51); MONO 2 % (1-9)
[2016-12-19 09:52] LABS: AGAP 9; BUN 16 mg/dL (8-22); CALCIUM 8.7 mg/dL (8.8-10.2); CHLORIDE 95 mmol/L (98-107); COSMO 273; POTASSIUM 3.4 mmol/L (3.5-5.1); SODIUM 135 mmol/L (136-145); TCO2 31 mmol/L (25-35)
--- NOTE | 2016-12-19 11:47 | PROGRESS NOTE ---
DATE: 12/19/2016 Today Ms. Lazaro referred to be doing okay. Patient continues to have significant wheezing. She is coughing up some yellowish sputum. OBJECTIVE: Vitals: Blood pressure 136/67, pulse of 89, respiration is 18, temperature 97.6 degrees. General: Ms. Lazaro is a 76-year-old female. She was in bed. Not seemingly in distress. HEENT: Mucosa is pink and moist. Anicteric. Acyanotic. Neck: Neck is supple. Chest: Air entry is bilaterally reduced. There is diffuse bilateral end-expiratory wheezes and some bibasilar crepitations. Cardiovascular: Regular rate and rhythm. There is a 3/6 murmur with radiation to the carotid. Abdomen: Is soft. Nontender. There is an old anterior midline surgical scar. Extremities: No pedal edema. HAMMERER: Patient is alert and oriented x4. There is no focal neurological deficit. LABORATORY DATA: WBC is up to 12.57, hemoglobin is 11.9, platelet count of 192,000, only 4% of bands on the peripheral smear. Chemistry reviewed. Sodium is 135, potassium is 3.5. The a.m. sputum culture is positive for Pseudomonas aeruginosa which is sensitive to levofloxacin. ASSESSMENT: 1. Hypotension on presentation due to sepsis. This is improved. 2. Hypoxemic respiratory failure due to underlying lung cancer with superimposed pneumonia. 3. Multifocal pneumonia with positive sputum culture for Pseudomonas aeruginosa which is sensitive to levofloxacin. We have therefore discontinued the Zosyn and will continue only with the Levo. Of note, patient's WBC went a little high so will keep eye on that. 4. History of squamous cell poorly differentiated lung cancer. A CT scan on presentation shows some worsening of the underlying disease. The patient is seen by Dr. Garcias. 5. Diabetes mellitus. We will start the patient on glargine 15. We will continue with the sliding scale. 6. Physical deconditioning. The patient will continue with physical rehabilitation. 7. Protein calorie malnutrition. Stable. GENERAL PLAN: We will going to discontinue the Zosyn, continue with the levofloxacin. Encourage CPT for the lungs, also incentive spirometer. We will also continue with the nebulization and hopefully be able to discharge the patient soon.
[2016-12-19] MEDS: LEVAQUIN 750 MG/D5W 150 ML IV SCH (15:47)
[2016-12-19] MEDS: LOVENOX SUBQ SCH (15:48)
[2016-12-19] MEDS: PROTONIX IV SCH (15:48)
[2016-12-19] MEDS: SODIUM CHLORIDE 0.9% INJ SCH (15:48)
[2016-12-19] MEDS ORDERED: LASIX IV ONE (20:24)
[2016-12-19] MEDS ORDERED: ATIVAN IV ONE ×2 (22:02→22:20)
[2016-12-19 22:07] LABS: URINE CULTURE NEEDED? NO; URINE MICRO REVIEW NEEDED? NO; URINE SOURCE CATH
[2016-12-19 22:20] LABS: BILIRUBIN URINE NEGATIVE (NEGATIVE); BLOOD URINE NEGATIVE (NEGATIVE); COLOR YELLOW; GLUCOSE URINE NEGATIVE (NEGATIVE); LEUKOCYTES URINE NEGATIVE (NEGATIVE); NITRITE URINE NEGATIVE (NEGATIVE); PH URINE 5.5; PROTEIN URINE NEGATIVE (NEGATIVE); SP GRAVITY URINE 1.012; TURBIDITY URINE CLEAR (CLEAR); UROBILINOGEN URINE NORMAL (NORMAL)
[2016-12-19 22:22] LABS: UR EPITHELIAL CELLS <10 /HPF (<10); URINE BACTERIA NEGATIVE /HPF; URINE RBC <10 /HPF (<10); URINE WBC <10 /HPF (<10)
[2016-12-20] MEDS: ATIVAN IV PRN ×5 (03:14→22:56)
[2016-12-20] MEDS: DUONEB (A & A) INH SCH ×5 (03:38→20:16)
[2016-12-20 04:24] LABS: ALLEN TEST YES; BE 13.3 mmoll (-3.0-3.0); BLOOD TYPE ARTERIAL; DRAW SITE L RADIAL; METHB 1.7 % (0.0-1.5); O2(CT) 15.2 mL/dL (15.0-23.0); PO2(98.6) 64 mmHg (60-100); SAMPLE BLOOD; SAO2 95.8 % (95.0-100.0); THB 11.7 g/dL (11.5-17.4); pH(98.6) 7.42 (7.35-7.45)
[2016-12-20] MEDS ORDERED: BLISTEX MEDICATED BERRY LIP BALM TOP PRN (04:25)
[2016-12-20 04:31] LABS: MODALITY BI PAP
[2016-12-20 04:32] LABS: PCO2(98.6) 62 mmHg (35-45)
[2016-12-20] MEDS: HUMALOG SUBQ SCH ×4 (06:09→21:02)
[2016-12-20 06:28] LABS: EOS# 0.01 X1000 (0.0-0.7); EOS% 0.1 % (0.0-10.0); HEMATOCRIT 36.1 % (37.0-47.0); IMM GRAN# 0.02 X1000 (0.0-0.04); IMM GRAN% 0.2 % (0.0-0.5); LYMPH# 0.26 X1000 (1.2-3.4); LYMPH% 2.4 % (20.5-51.1); MANUAL DIFF NEEDED? YES; MCH 31.7 PG (27-31); MCHC 33.2 g/dL (33-37); MCV 95.3 FL (81-99); MONO# 0.85 X1000 (0.11-0.59); MONO% 7.8 % (1.7-9.3); MPV 10.3 FL (7.4-10.4); NEUT% 89.5 % (42.2-75.2); PLT 200 X1000 (130-400); RBC 3.79 XMIL (4.2-5.4)
[2016-12-20 06:55] LABS: AGAP 11; BUN 15 mg/dL (8-22); CALCIUM 8.8 mg/dL (8.8-10.2); CHLORIDE 91 mmol/L (98-107); COSMO 273; POTASSIUM 3.4 mmol/L (3.5-5.1); SODIUM 135 mmol/L (136-145); TCO2 33 mmol/L (25-35)
[2016-12-20] MEDS ORDERED: INSULIN PEN NEEDLES ONE (07:06)
[2016-12-20 08:06] LABS: BANDS 6 % (0-1); LYMPHS 2 % (21-51); MONO 6 % (1-9)
[2016-12-20] MEDS ORDERED: POTASSIUM CHLORIDE 40 MEQ/SWI 100 ML IV ONE (08:37)
[2016-12-20] MEDS: LANTUS SUBQ SCH (09:01)
[2016-12-20] MEDS: LASIX IV SCH ×2 (09:06→21:34)
[2016-12-20] MEDS ORDERED: LANOXIN IV ONE (10:09)
[2016-12-20] MEDS ORDERED: MAGNESIUM SULFATE 2 GM/S.W.I. 50 ML IV ONE (10:50)
--- NOTE | 2016-12-20 11:32 | CONSULTATION ---
DATE OF CONSULTATION: 12/20/2016 INDICATION: New onset atrial fibrillation. HISTORY OF PRESENT ILLNESS: Ms. Lazaro is a pleasant 76-year-old white female who has a history of non-small cell lung cancer that is metastatic. She is normally followed by Dr. Nash as well as Dr. Garcias. She apparently presented for admission on 12/16/2016 secondary to low blood pressure. Apparently, she has been having some issues with hemoptysis at home and was apparently seen in the ER for that issue. She has had no issues with chest pain. She presented on the day of admission to [facility] for her usual scheduled chemotherapy and noted to have a systolic in the 70s. That at that time also prompted her to be referred for an ER evaluation. There was concern for sepsis and she was started on antibiotics. Today, she apparently developed a new onset of atrial fibrillation. Rates initially were up into the 180s or so. She was placed on BiPAP and is pending transfer up to the [facility]. On my examination, she was in sinus tachycardia at a rate of about 120 to 130s. She is currently on BiPAP and she is currently in moderate respiratory distress. PAST MEDICAL HISTORY: 1. Significant for non-small cell lung cancer with metastases this is followed by Dr. Nash as well as Dr. Garcias. 2. Type 2 diabetes. 3. Hypertension. 4. Reflux disease. 5. History of severe aortic stenosis. She was seen in my office in December 2015 and due to her ongoing cancer evaluation, we had delayed any sort of intervention. She was scheduled for a followup appointment in 3 months at that time, as she was having multiple interventions and evaluations done for her lung cancer. She never returned to the clinic after that. 6. COPD. 7. Hypertension. 8. Osteoarthritis. SOCIAL HISTORY: She quit smoking around 20 years ago. . Occasional alcohol use. FAMILY HISTORY: History of [place] in her mother. A sister from apparently a blood clot. History of dementia also. REVIEW OF SYSTEMS: A 10-system review of systems was unable to be obtained secondary to the BiPAP being in place. Unable to understand the patient as well as her current respiratory distress. PHYSICAL EXAMINATION: Vital Signs: She is afebrile. Her heart rate is currently in the 120s to 130s. Her most recent blood pressure is 133/97. General: She is in moderate distress secondary to shortness of breath. HEENT: Oropharynx appears moist. Poor dentition. Eye examination: White sclerae, pink conjunctivae. Neck: Examination shows no obvious thyromegaly or thyroid tenderness. Cardiovascular: She sounds to be in a tachycardic but regular rhythm. She has no obvious murmurs. She has no S3 present. She has no lower extremity edema. Chest: Exam has coarse bilateral breath sounds. She is tachypneic. She does have some mild use of accessory muscles presently. Abdomen: Soft, nontender, nondistended. No obvious organomegaly. Skin: Warm and dry throughout, without any rashes. Neurological: She is moving all extremities well. Cranial nerves 2-12 are intact without any sensation deficits. Psychiatric: She is alert, oriented, pleasant. She has normal mood and affect. PERTINENT DATA: Her telemetry seems to show bouts of intermittent atrial fibrillation with rapid ventricular response over the last 3 days. The most recent telemetry I have on the chart is from 12/17/2016 showing this. Her EKG presently shows sinus tachycardia, rate of 126 beats per minute. Her EKG at 9:34 this morning appears to show atrial fibrillation with rapid ventricular response rate of 180 beats per minute. Her laboratory data shows a white count of 10.8. Her hematocrit is 36. Her platelet count is 200,000. She has a left shift with a bandemia of 6 and neutrophils of 86%. Her current ABG shows a pH of 7.42, pCO2 of 62, and a PO2 of 35, an AA gradient of 144. This is slightly worse than yesterday but not much different. Sodium 135, potassium 3.4. Her BUN is 15 and creatinine 0.6. Her magnesium level is 1.7. She had a chest x-ray performed on 12/18/2016 that demonstrates patchy infiltrates suggestive of pneumonia or possible pulmonary edema. She had a pulmonary arteriogram performed on 12/16/2016 showing no evidence of pulmonary emboli, evidence for metastatic disease with apparent worsening since the study on 11/21/2016. Echocardiogram demonstrates a normal LV size. She has a severe degree of aortic stenosis with a mean gradient of 75, a valve area of 0.7. This would denote severe aortic stenosis. Her ejection fraction was 67%. ASSESSMENT: 1. Metastatic non-small cell lung cancer with apparent interval worsening since last CT scan in October. 2. Severe aortic stenosis. 3. Interval development of atrial fibrillation with rapid ventricular response. 4. Likely pneumonia with cultures from 12/16/2016 demonstrating Pseudomonas in the sputum. PLAN: At this point, she will be moved up to the [facility]. I believe it would be appropriate to try to place the patient on amiodarone to try to maintain sinus rhythm. Certainly, any sort of tachyarrhythmia such as atrial fibrillation with rates into the 180s could certainly compromise her already taxed respiratory status. She certainly has a poor prognosis given her advanced lung cancer and severe degree of aortic stenosis that, considering her comorbidities, is likely non- intervenable on. We will try to assist with rhythm control in this patient. She has already been given some IV digoxin, which I agree with at this time.
--- NOTE | 2016-12-20 12:07 | PROGRESS NOTE ---
DATE: 12/20/2016 Today Ms. Lazaro was under the BiPAP. She referred to be having some difficulty breathing. I understand overnight she was more short of breath. OBJECTIVE: Vital signs: Blood pressure is now down to 82/30s, pulse is 170s, is atrial fibrillation, RVR. Chest: Air entry is bilaterally reduced with some crepitations more so to the left posterior lung field. Cardiovascular: Irregularly irregular heart rate. No murmurs, no rubs. Abdomen: Distended but nontender. Bowel sounds are present. Extremities: No pedal edema. WEB SITE SPECIALIST: Patient is alert, is oriented. There is no focal neurological deficit. LABORATORY DATA: WBC is 10.82, hemoglobin is 12.0, platelet count of 200,000. PH is 7.42, pCO2 is 62, PaO2 is 64. Sodium is 135, potassium is 3.4, chloride is 91, bicarb is 33. A chest x-ray done the day before continue to show patchy pneumonia and/or pulmonary edema. ASSESSMENT: 1. Acute mixed respiratory failure, (hypoxemic and hypercarbic). Patient is currently under the BiPAP. 2. Hypotension on presentation which we think was due to sepsis. 3. New onset atrial fibrillation with RVR with hypotension. I will go ahead and give the patient a dose of digoxin and move her to [facility]. I have already discussed the case with Dr. Acosta and he will be coming to see the patient very soon. 4. Severe aortic stenosis on echocardiogram. At this point, patient is not a candidate for any surgical intervention because of her advanced metastatic lung cancer. 5. History of squamous cell poorly differentiated lung cancer primary of the left. Patient sees Dr. Gary. 6. Diabetes mellitus stable. 7. Physical deconditioning. 8. Protein calorie malnutrition. 9. Suspected pseudomonal pneumonia. The patient is currently on levofloxacin. GENERAL PLAN: Patient has developed atrial fibrillation, RVR today. We are going to transfer her to [facility]. Because of being hypotensive will give her a dose of digoxin and we have consulted Cardiology to evaluate for possibility of cardioversion. Patient's hemoglobin and hematocrit is stable. Platelet is okay. Initial INR on the was okay and does not have any overt bleeding. We will go ahead and give her a dose of therapeutic Lovenox as well. critical time spent 45min. [facility]
[2016-12-20] MEDS: LOVENOX SUBQ SCH ×2 (12:21→21:34)
[2016-12-20] MEDS ORDERED: CORDARONE 360 MG/D5W 200 ML IV ONE (13:00)
--- NOTE | 2016-12-20 13:53 | Diag Imaging Result Document ---
PROCEDURE NAME: CHEST-1 VIEW - 12/20/2016 AP UPRIGHT CHEST: FINDINGS: There is bilateral upper lobe opacification with pleural thickening on the left and retraction of the left hilum superiorly. The opacity in the right upper lobe appears worse than on 12/18/2016. IMPRESSION: Worsening right upper lobe pneumonia.
[2016-12-20] MEDS: SODIUM CHLORIDE 0.9% INJ SCH (16:34)
[2016-12-20] MEDS: LEVAQUIN 750 MG/D5W 150 ML IV SCH (16:34)
[2016-12-20] MEDS: PROTONIX IV SCH (16:35)
[2016-12-20] MEDS ORDERED: CORDARONE 540 MG in D5W 289.2 ML IV ONE (19:00)
[2016-12-21] MEDS: ATIVAN IV PRN (02:00)
[2016-12-21] MEDS ORDERED: LANOXIN IV ONE (02:12)
[2016-12-21] MEDS ORDERED: CORDARONE IV ONE (02:13)
[2016-12-21] MEDS ORDERED: CORDARONE 150 MG/D5W 100 ML IV ONE (02:30)
[2016-12-21] MEDS: DUONEB (A & A) INH SCH ×4 (03:31→20:40)
[2016-12-21 05:59] LABS: ALLEN TEST YES; BLOOD TYPE ARTERIAL; DRAW SITE R RADIAL; METHB 0.9 % (0.0-1.5); O2(CT) 15.2 mL/dL (15.0-23.0); PO2(98.6) 68 mmHg (60-100); SAMPLE BLOOD; SAO2 95.3 % (95.0-100.0); THB 11.9 g/dL (11.5-17.4); pH(98.6) 7.27 (7.35-7.45)
[2016-12-21 06:00] LABS: MODALITY BI PAP; PCO2(98.6) 87 mmHg (35-45)
[2016-12-21] MEDS ORDERED: ROMAZICON IV ONE (06:12)
[2016-12-21] MEDS ORDERED: HALDOL IV PRN (06:13)
[2016-12-21] MEDS: HUMALOG SUBQ SCH ×4 (06:27→21:28)
[2016-12-21 07:09] LABS: BASO% 0.1 % (0.0-0.8); HEMATOCRIT 38.7 % (37.0-47.0); HEMOGLOBIN 12.6 g/dL (12.0-16.0); IMM GRAN# 0.04 X1000 (0.0-0.04); IMM GRAN% 0.4 % (0.0-0.5); LYMPH# 0.17 X1000 (1.2-3.4); LYMPH% 1.9 % (20.5-51.1); MANUAL DIFF NEEDED? YES; MCH 31.2 PG (27-31); MCHC 32.6 g/dL (33-37); MCV 95.8 FL (81-99); MONO# 0.48 X1000 (0.11-0.59); MONO% 5.2 % (1.7-9.3); MPV 10.5 FL (7.4-10.4); NEUT% 92.4 % (42.2-75.2); PLT 210 X1000 (130-400); RBC 4.04 XMIL (4.2-5.4)
--- NOTE | 2016-12-21 07:24 | Diag Imaging Result Document ---
PROCEDURE NAME: CHEST-PORTABLE - 12/21/2016 AP PORTABLE CHEST, 12/21/2016 AT 0500 HOURS: FINDINGS: There is alveolar opacity in both upper lung zones. The lungs are slightly better expanded than on 12/20/2016. Otherwise, there has been no appreciable change. IMPRESSION: Bilateral upper lobe pneumonia.
[2016-12-21 07:57] LABS: BANDS 6 % (0-1); LYMPHS 2 % (21-51); MONO 4 % (1-9)
[2016-12-21 08:14] LABS: ALLEN TEST NO; BE 14.7 mmoll (-3.0-3.0); BLOOD TYPE ARTERIAL; DRAW SITE R BRACHIAL; METHB 1.6 % (0.0-1.5); O2(CT) 17.3 mL/dL (15.0-23.0); PO2(98.6) 82 mmHg (60-100); SAMPLE BLOOD; SAO2 98.2 % (95.0-100.0); pH(98.6) 7.39 (7.35-7.45)
[2016-12-21 08:16] LABS: MODALITY BI PAP; PCO2(98.6) 71 mmHg (35-45)
[2016-12-21] MEDS: LOVENOX SUBQ SCH ×3 (08:33→21:29)
[2016-12-21] MEDS: LASIX IV SCH ×2 (08:33→21:28)
--- NOTE | 2016-12-21 11:08 | PROGRESS NOTE ---
DATE: 12/21/2016 SUBJECTIVE: Today Ms. Lazaro referred to be doing relatively fine. She was in bed, on the BiPAP. OBJECTIVE: Vital signs: Blood pressure 121/70, pulse of 79, respirations 20, temperature 96.4 degrees. Patient is saturating about 98% on the BiPAP. General: Ms. Lazaro is a 76-year-old female. She was in bed. HEENT: Mucosa is pink and moist. Anicteric. Acyanotic. Neck: Supple. Chest: Air entry is bilaterally reduced. A few bibasilar crepitations in both lungs with occasional rhonchi. Cardiovascular: Irregularly irregular heart rate. Rate controlled. No murmurs. Abdomen: Soft, distended, but nontender. Extremities : No pedal edema. CUTTER GRINDER OPERATOR: Patient is sleepy but is easily arousable and follows commands. LABORATORY DATA: WBC is 9.18, hemoglobin is 12.6, platelet count of 210,000. Only 6% of bands on peripheral smear. Chemistry none. Glucose is 181. ProBNP is 18,176. A chest x-ray this morning shows bilateral upper lobe pneumonia. ASSESSMENT: 1. Acute mixed respiratory failure (hypoxemic and hypercarbic). Patient continues to be needing the BiPAP. 2. Hypotension on presentation, likely due to sepsis, improved. 3. New onset atrial fibrillation with rapid ventricular response. Patient is currently on the amiodarone drip. Has been evaluated by cardiology. The patient is currently rate controlled. We will follow further recommendations from cardio. 4. Severe aortic stenosis on echo. Patient is not a surgical candidate because of advanced metastatic lung disease. 5. History of squamous cell poorly differentiated lung cancer primary of the left lung. However, the CTA of the patient on this admission seems that it is actually getting worse. 6. Multifocal pneumonia with sputum positive for pseudomonal pneumonia. The patient is currently on levofloxacin. We will plan to treat this for a total of 14 days. Today is day 5 on antibiotics. 7. Diabetes mellitus. Stable. 8. Protein calorie malnutrition. 9. Acute on chronic diastolic heart failure. I think the acute nature was the atrial fibrillation that probably decompensated the heart function. PLAN: Patient seems to be relatively stable. We are going to continue with the current rate control/rhythm control strategy and follow with further recommendations from cardiology. will order abg and chest xray for tomorrow. [facility]
--- NOTE | 2016-12-21 11:52 | PROGRESS NOTE ---
DATE: 12/21/2016 SUBJECTIVE: Ms. Lazaro is somewhat somnolent this morning but has no complaints. She has no heart racing overnight. PHYSICAL EXAMINATION: Vital signs: She is afebrile. Her heart rate at the time of my examination was in the 80s and appears to be in sinus. Over the last 24 hours she did appear to have multiple heart rates above 100. Blood pressure most recently is 121/70. General: No acute distress. Cardiovascular: She is in a regular rate and rhythm. No obvious murmur. Again, telemetry seems to show sinus. She has a 2/6 systolic murmur at the right upper sternal border that is difficult to auscultate secondary to her BiPAP noise. She does have no lower extremity edema. Chest: Has coarse bilateral breath sounds throughout. Abdomen: Soft, nontender, nondistended. No obvious organomegaly. Skin: Warm and dry throughout. PERTINENT DATA: White count 9.1, hematocrit is 38, platelet count 210,000. ABG shows a pH of 7.39, pCO2 of 71, PO2 of 82. Her lactate is 1.1. She has no chemistry data from today. ProBNP was 18,000. ASSESSMENT: 1. Severe aortic stenosis. 2. Metastatic lung cancer. 3. Atrial fibrillation. 4. Pneumonia. PLAN: We will continue her on amiodarone IV today. We will change it over to oral in the morning at 400 t.i.d. She is currently maintaining sinus rhythm on her current protocol. We will recheck a chemistry in the morning.
[2016-12-21] MEDS: LANTUS SUBQ SCH (13:45)
[2016-12-21] MEDS ORDERED: CORDARONE 540 MG in D5W 289.2 ML IV ONE (14:54)
[2016-12-21] MEDS: LEVAQUIN 750 MG/D5W 150 ML IV SCH (18:24)
[2016-12-21] MEDS: PROTONIX IV SCH (18:24)
[2016-12-21] MEDS: SODIUM CHLORIDE 0.9% INJ SCH (18:24)
[2016-12-22] MEDS: DUONEB (A & A) INH SCH ×4 (03:21→19:28)
[2016-12-22 04:54] LABS: ALLEN TEST YES; BLOOD TYPE ARTERIAL; DRAW SITE R RADIAL; METHB 1.3 % (0.0-1.5); O2(CT) 16.2 mL/dL (15.0-23.0); PCO2(98.6) 73 mmHg (35-45); PO2(98.6) 73 mmHg (60-100); SAMPLE BLOOD; SAO2 97.7 % (95.0-100.0); THB 12.3 g/dL (11.5-17.4); pH(98.6) 7.41 (7.35-7.45)
[2016-12-22 04:55] LABS: MODALITY BI PAP
[2016-12-22 05:45] LABS: EOS# 0.07 X1000 (0.0-0.7); EOS% 0.9 % (0.0-10.0); HEMATOCRIT 37.5 % (37.0-47.0); HEMOGLOBIN 12.2 g/dL (12.0-16.0); IMM GRAN# 0.03 X1000 (0.0-0.04); IMM GRAN% 0.4 % (0.0-0.5); LYMPH# 0.19 X1000 (1.2-3.4); LYMPH% 2.6 % (20.5-51.1); MANUAL DIFF NEEDED? YES; MCH 31.2 PG (27-31); MCHC 32.5 g/dL (33-37); MCV 95.9 FL (81-99); MONO# 0.56 X1000 (0.11-0.59); MONO% 7.5 % (1.7-9.3); MPV 10.3 FL (7.4-10.4); NEUT% 88.6 % (42.2-75.2); PLT 202 X1000 (130-400); RBC 3.91 XMIL (4.2-5.4)
--- NOTE | 2016-12-22 06:04 | EKG Report ---
Test Performed on : 12/20/2016 09:34:55 AM Test Reason : tachycardia Blood Pressure : / mmHG Vent. Rate : 188 BPM Atrial Rate : 180 BPM P-R Int : 000 ms QRS Dur : 084 ms QT Int : 254 ms P-R-T Axes : 000 028 219 degrees QTc Int : 449 ms Atrial fibrillation. with rapid ventricular response. Minimal voltage criteria for LVH, may be normal variant Marked ST abnormality, possible inferior subendocardial injury Marked ST abnormality, possible anterolateral subendocardial injury Abnormal ECG When compared with ECG of 16-DEC-2016 10:50, (Unconfirmed) Significant changes have occurred Confirmed by Jesus Marina MD ([id number]) on 12/23/2016 9:21:17 PM
--- NOTE | 2016-12-22 06:04 | EKG Report ---
Test Performed on : 12/20/2016 10:26:56 AM Test Reason : tachy Blood Pressure : / mmHG Vent. Rate : 126 BPM Atrial Rate : 126 BPM P-R Int : 140 ms QRS Dur : 090 ms QT Int : 316 ms P-R-T Axes : 088 042 099 degrees QTc Int : 457 ms Sinus tachycardia. Left ventricular hypertrophy with repolarization abnormality Nonspecific ST and T wave abnormality Abnormal ECG When compared with ECG of 20-DEC-2016 09:34, (Unconfirmed) Sinus rhythm. has replaced Atrial fibrillation. Vent. rate has decreased BY [address] less depressed in Inferior leads ST no longer depressed in Anterior leads T wave inversion no longer evident in Inferior leads T wave inversion less evident in Anterolateral leads Confirmed by Salas KIRKLAND, Jesus ([id number]) on 12/23/2016 9:22:03 PM
[2016-12-22 06:08] LABS: AGAP 9; BUN 18 mg/dL (8-22); CHLORIDE 84 mmol/L (98-107); COSMO 269; POTASSIUM 3.3 mmol/L (3.5-5.1); SODIUM 133 mmol/L (136-145); TCO2 40 mmol/L (25-35)
[2016-12-22] MEDS: HUMALOG SUBQ SCH ×4 (06:31→21:20)
--- NOTE | 2016-12-22 07:11 | EKG Report ---
Test Performed on : 12/21/2016 01:51:30 AM Test Reason : No Order in Visitar Blood Pressure : / mmHG Vent. Rate : 163 BPM Atrial Rate : 170 BPM P-R Int : 000 ms QRS Dur : 100 ms QT Int : 242 ms P-R-T Axes : 000 035 237 degrees QTc Int : 398 ms Atrial fibrillation. with rapid ventricular response. Moderate voltage criteria for LVH, may be normal variant Marked ST abnormality, possible inferior subendocardial injury Nonspecific ST and T wave abnormality Abnormal ECG When compared with ECG of 20-DEC-2016 10:26, (Unconfirmed) Atrial fibrillation. has replaced Sinus rhythm. ST now depressed in Anterior leads T wave inversion now evident in Inferior leads T wave inversion more evident in Anterolateral leads Confirmed by Jesus Marina MD ([id number]) on 12/23/2016 9:28:31 PM
[2016-12-22 07:15] LABS: LYMPHS 2 % (21-51); MONO 3 % (1-9)
[2016-12-22] MEDS ORDERED: LASIX IV SCH (09:00)
[2016-12-22] MEDS: CORDARONE PO SCH ×3 (09:17→21:16)
[2016-12-22] MEDS: LANTUS SUBQ SCH (10:13)
[2016-12-22] MEDS: LOVENOX SUBQ SCH (10:13)
[2016-12-22] MEDS: PROTONIX IV SCH (16:03)
[2016-12-22] MEDS: LEVAQUIN 750 MG/D5W 150 ML IV SCH (16:03)
[2016-12-22] MEDS: SODIUM CHLORIDE 0.9% INJ SCH (16:03)
--- NOTE | 2016-12-22 16:17 | PROGRESS NOTE ---
DATE: 12/22/2016 SUBJECTIVE: Ms. Lazaro reports she feels better. Breathing has improved. She is on a face mask. Taken off the BiPAP. PHYSICAL EXAMINATION: Vital Signs: She is afebrile. Heart rate of 98, blood pressure 117/72. General: No acute distress. Cardiovascular: She is in a regular rate and rhythm presently. Telemetry currently shows she is in sinus rhythm. She has no lower extremity edema. Chest Examination: Has coarse bilateral breath sounds heard throughout. She has no increased work of breathing. Abdomen: Soft, nontender, nondistended. No obvious organomegaly. Skin Exam: Warm and dry throughout. PERTINENT DATA: Her white count 7.4, her hematocrit is 37.5, platelet count is 202,000. Sodium is 133, potassium 3.3, BUN 18, creatinine 0.5. ASSESSMENT: 1. Severe aortic stenosis. 2. Lung cancer. 3. Atrial fibrillation. PLAN: We will continue on amiodarone orally as already adjusted yesterday. We do not have any further recommendations. The patient has severe aortic stenosis, which given her extent of lung cancer is not an operative candidate at this point. [facility]
--- NOTE | 2016-12-22 20:25 | PROGRESS NOTE ---
DATE: 12/22/2016 SUBJECTIVE: Today Ms. Lazaro referred to be doing a whole lot better. Denies any shortness of breath. I saw her early on today. She was actually participate in physical therapy and then I went back to see her later on today. OBJECTIVE: Vital signs: Blood pressure is 151/71, pulse of 76, respiration is 18, temperature 96.7 degrees. General: Ms. Lazaro is a 76-year-old female. She was in bed. She did not seem to be in any distress. HEENT: Mucosa is pink and moist. Anicteric and acyanotic. Neck: Supple. Chest: Air entry is bilaterally reduced. There are coarse crepitations in both posterior lung patel. Cardiovascular: Irregularly irregular, but is rate controlled. No murmurs. Abdomen: Soft, nondistended. Bowel sounds are present. Extremities: No pedal edema. 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 LABORATORY DATA: WBC 7.43, hemoglobin is 12.2, platelet count is 202,000. Chemistry is reviewed. Sodium is 133, potassium is 3.3, chloride is 84, bicarb is 40. CURRENT MEDICATIONS: Albuterol nebulizers, amiodarone 400, 3 times per day, Lovenox 60 b.i.d., glargine 15 units, levofloxacin. ASSESSMENT: 1. Acute mixed respiratory failure (hypoxemic and hypercarbic). Patient continues needing p.r.n. BiPAP. This morning she is actually off the BiPAP and needing only face mask. 2. Hypotension on presentation, likely due to sepsis. This is improved. 3. New onset atrial fibrillation with rapid ventricular response. The patient was moved from the floor to [facility], started on the diltiazem drip and also amiodarone drip. These have all been transitioned to oral and patient seems to be tolerating that very well. Cardiology is also on board. 4. Severe aortic stenosis on echocardiogram. The patient has been declared nonsurgical because of the advanced metastatic lung disease that she has. 5. 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 A computed tomography angiography of the chest on this admission seems to suggest the malignancy is actually getting worse. There is multiple bilateral lymphadenopathy and some extension of the disease into the right lung. 6. Multifocal pneumonia with sputum positive for Pseudomonas pneumonia, patient is currently on levofloxacin and we will plan to treat this for 14 days. Today is day 6. This can be switched to p.o. antibiotics whenever patient is ready to be discharged. 7. Diabetes mellitus. A1c 5.6 on presentation. We are controlling this with insulin here in the hospital. 8. Acute on chronic diastolic heart failure. I think that this became decompensated because of the atrial fibrillation rapid ventricular response. 9. Protein calorie malnutrition noted. PLAN: In general, patient chemistry today showed a little bit high alkalosis and mild hypokalemia, which I think is probably due to the underlying use of diuretics. We are going to discontinue that and repeat electrolytes tomorrow morning.
[2016-12-23] MEDS: DUONEB (A & A) INH SCH ×4 (03:32→19:32)
[2016-12-23 05:10] LABS: EOS# 0.08 X1000 (0.0-0.7); EOS% 1.3 % (0.0-10.0); HEMATOCRIT 37.6 % (37.0-47.0); HEMOGLOBIN 12.4 g/dL (12.0-16.0); IMM GRAN# 0.03 X1000 (0.0-0.04); IMM GRAN% 0.5 % (0.0-0.5); LYMPH# 0.22 X1000 (1.2-3.4); LYMPH% 3.4 % (20.5-51.1); MANUAL DIFF NEEDED? YES; MCH 31.3 PG (27-31); MCV 94.9 FL (81-99); MONO# 0.51 X1000 (0.11-0.59); MPV 10.5 FL (7.4-10.4); NEUT% 86.8 % (42.2-75.2); PLT 181 X1000 (130-400); RBC 3.96 XMIL (4.2-5.4)
[2016-12-23 05:24] LABS: AGAP 9; BUN 16 mg/dL (8-22); CALCIUM 9.1 mg/dL (8.8-10.2); CHLORIDE 85 mmol/L (98-107); COSMO 268; POTASSIUM 3.6 mmol/L (3.5-5.1); SODIUM 133 mmol/L (136-145); TCO2 39 mmol/L (25-35)
[2016-12-23 05:30] LABS: ALLEN TEST YES; BE 18.2 mmoll (-3.0-3.0); BLOOD TYPE ARTERIAL; DRAW SITE R RADIAL; PO2(98.6) 67 mmHg (60-100); SAMPLE BLOOD; pH(98.6) 7.42 (7.35-7.45)
[2016-12-23 05:31] LABS: MODALITY VENTIMASK; PCO2(98.6) 72 mmHg (35-45)
[2016-12-23 06:30] LABS: EOS 1 % (1-10); LYMPHS 4 % (21-51); MONO 6 % (1-9)
[2016-12-23] MEDS: LOVENOX SUBQ SCH (06:41)
--- NOTE | 2016-12-23 07:31 | Diag Imaging Result Document ---
PROCEDURE NAME: CHEST-PORTABLE - 12/23/2016 PORTABLE CHEST X-RAY: COMPARISON: 12/21/2016. FINDINGS: Stable right chest port. Stable bilateral upper lobe infiltrates, left greater than right. Stable tiny scattered nodules. No new infiltrates. Heart size remains normal. IMPRESSION: No significant change from prior.
[2016-12-23] MEDS: HUMALOG SUBQ SCH ×4 (07:34→20:43)
[2016-12-23] MEDS: CORDARONE PO SCH (08:02)
[2016-12-23] MEDS: LANTUS SUBQ SCH (08:03)
--- NOTE | 2016-12-23 13:52 | PROGRESS NOTE ---
DATE: 12/23/2016 Today Ms. Lazaro was a little sleepy. I understand she did not get very good sleep last night. OBJECTIVE: Vital Signs: Stable. Blood pressure is 147/100, pulse over 85, respirations 22, temperature 97.4 degrees. General: Ms. Lazaro is a 76-year-old female. She is in bed, was sleeping and easily arousable. Neck: Supple. Chest: Good air entry bilateral. There are some few coarse bilateral crepitations more so to the left upper lobe. Cardiovascular: Irregularly irregular but is rate controlled. No murmurs, no rubs. Abdomen: Soft, nontender. Extremities: No pedal edema. SERVICER: Patient is alert. He is not is sleepy but easily arousable. LABORATORY DATA: WBC is 6.40, hemoglobin is 12.4, platelet count of 181,000. ABG: PCO2 is 72. Chemistry reviewed. Sodium is 135, potassium is 3.6, chloride is 85, bicarbonate is 39. The ProBNP is 8531, a remarkable improvement from 18,176. ASSESSMENT: 1. Acute mixed respiratory failure (hypoxemic and hypercarbic). Patient continues to be needing the BiPAP. 2. Hypotension on presentation due to sepsis is improved. 3. New onset atrial fibrillation with rapid ventricular response. This has been controlled. Patient is currently on p.o. amiodarone and we switched the Lovenox to Apixaban for anticoagulation. 4. Severe aortic stenosis on echo. Patient has been seen by Cardiology and they recommend nonsurgical therapy because of her advanced metastatic lung disease. 5. History of squamous cell poorly differentiated lung cancer primary of the left lung. Current CTA shows progression of the disease. 6. Multifocal pneumonia with sputum positive for Pseudomonas. The patient is currently on levofloxacin. Today is day 7 and we plan to treat this for 14 days. 7. Diabetes mellitus. We will continue with the sliding scale. 8. Acute on chronic diastolic heart failure. ProBNP is improving. Patient's clinical condition is also improving. I think the patient went into decompensation because of the atrial fibrillation RVR. 9. Protein calorie malnutrition. We will continue with supplements. So, I think in general patient is doing a lot better. We will continue with the current antibiotics. Will continue with the BiPAP use. Patient will probably be able to be discharged tomorrow or the day after if her pCO2 is within acceptable range. She will continue to follow up with Dr. Tucker and her oncologist Dr. Garcias.
[2016-12-23] MEDS: ELIQUIS PO SCH ×2 (14:15→20:43)
[2016-12-23] MEDS: LEVAQUIN 750 MG/D5W 150 ML IV SCH (16:20)
[2016-12-23] MEDS: SODIUM CHLORIDE 0.9% INJ SCH (16:21)
[2016-12-23] MEDS: PROTONIX IV SCH (16:21)
[2016-12-23] MEDS: XANAX PO SCH (20:43)
[2016-12-24] MEDS: DUONEB (A & A) INH SCH ×4 (03:57→21:07)
[2016-12-24 05:16] LABS: ALLEN TEST YES; BE 22.3 mmoll (-3.0-3.0); BLOOD TYPE ARTERIAL; DRAW SITE R RADIAL; O2(CT) 14.5 mL/dL (15.0-23.0); PO2(98.6) 59 mmHg (60-100); SAMPLE BLOOD; SAO2 88.1 % (95.0-100.0); THB 11.8 g/dL (11.5-17.4); pH(98.6) 7.41 (7.35-7.45)
[2016-12-24 05:18] LABS: MODALITY VENTIMASK; PCO2(98.6) 81 mmHg (35-45)
[2016-12-24 05:41] LABS: EOS# 0.14 X1000 (0.0-0.7); EOS% 2.2 % (0.0-10.0); HEMATOCRIT 36.7 % (37.0-47.0); HEMOGLOBIN 12.1 g/dL (12.0-16.0); IMM GRAN# 0.05 X1000 (0.0-0.04); IMM GRAN% 0.8 % (0.0-0.5); LYMPH# 0.16 X1000 (1.2-3.4); LYMPH% 2.5 % (20.5-51.1); MANUAL DIFF NEEDED? NO; MCV 94.1 FL (81-99); MONO# 0.64 X1000 (0.11-0.59); MONO% 9.8 % (1.7-9.3); NEUT% 84.7 % (42.2-75.2); PLT 194 X1000 (130-400)
[2016-12-24 06:14] LABS: AGAP 7; BUN 13 mg/dL (8-22); CALCIUM 8.9 mg/dL (8.8-10.2); CHLORIDE 84 mmol/L (98-107); COSMO 269; POTASSIUM 3.3 mmol/L (3.5-5.1); SODIUM 134 mmol/L (136-145); TCO2 43 mmol/L (25-35)
[2016-12-24] MEDS: HUMALOG SUBQ SCH ×4 (06:27→22:10)
[2016-12-24] MEDS ORDERED: INSULIN PEN NEEDLES ONE (08:09)
[2016-12-24] MEDS: CORDARONE PO SCH (08:16)
[2016-12-24] MEDS: ELIQUIS PO SCH ×2 (08:16→22:12)
[2016-12-24] MEDS: LANTUS SUBQ SCH (08:17)
[2016-12-24 12:17] LABS: ALLEN TEST YES; BE 24.1 mmoll (-3.0-3.0); BLOOD TYPE ARTERIAL; DRAW SITE R RADIAL; METHB 1.7 % (0.0-1.5); O2(CT) 17.2 mL/dL (15.0-23.0); PO2(98.6) 81 mmHg (60-100); SAMPLE BLOOD; SAO2 97.8 % (95.0-100.0); pH(98.6) 7.47 (7.35-7.45)
[2016-12-24 12:18] LABS: MODALITY VENTIMASK; PCO2(98.6) 72 mmHg (35-45)
--- NOTE | 2016-12-24 13:37 | PALLIATIVE CARE CONSULTATION ---
DATE: 12/24/2016 REQUESTING PHYSICIAN: Denisse Garcias MD REASON FOR CONSULTATION: Goals of care. HISTORY OF PRESENT ILLNESS: This is an unfortunate 76-year-old , with a past medical history of non-small cell lung cancer, diabetes mellitus type 2, hypertension, and gastroesophageal reflux disease. She was most recently admitted after being transferred from Dr. Garcias's office, when she experienced O2 saturations in the 70s, heart rate in the 40s, and being hypotensive. While in the ED it was reported that in the days prior she was becoming progressively weak and had an increased shortness of breath. It was also reported that in the week prior to this admission, she had made a trip to the ER for coughing up large chunks of blood; however, she was discharged from the ER with a diagnosis of unspecified hemoptysis. Mrs. Lazaro' last Opdivo infusion was given on 12/02/2016. Currently, Ms. Lazaro is actually asleep in the bedside chair on my arrival. She does awaken easily and complains of shortness of breath. She denies pain and nausea at this time. Her family is at the bedside. The palliative care team has been consulted to assist with goals of care. REVIEW OF SYSTEMS: Twelve point review of systems has been conducted and otherwise negative, except those mentioned in the history of present illness. PAST MEDICAL HISTORY: See history of present illness. PAST SURGICAL HISTORY: 1. Bronchoscopy. 2. Large-bowel resection after a bowel perforation. It is reported that she had a colostomy and reversal. 3. Appendectomy. 4. Cataract surgery. FAMILY HISTORY: Positive for heart disease and dementia. SOCIAL HISTORY: Prior to this admission she lived at home with her . It is reported that she is a former tobacco user; however, drugs and alcohol have been denied. PHYSICAL EXAMINATION: General: This is an unfortunate 76-year-old female, who appears weak and in mild respiratory distress. HEENT: Atraumatic, normocephalic. Neck: Supple. Cardiovascular: Irregularly rate, irregular rhythm. Pulmonary: Respirations are labored, especially with conversation. Coarse rhonchi are scattered throughout all lung patel. Abdomen: Soft. Bowel sounds are active. Extremities: Pulses are palpable. Skin: Warm and dry. IMPRESSION: This is a 76-year-old female with a past medical history as listed above. I met with Ms. Lazaro and her family to discuss goals of care and discharge plan. The family and patient admits that she has become weaker over the last several weeks and is needing assistance with performing her activities of daily living. She states that her appetite is poor. The family reports that she has a 60 pounds weight loss within the last 12 months. The patient has decided that she would like to be discharged home and kept comfortable. Hospice services, in accordance with Medicare guidelines, have been discussed with the patient and family and they are agreeable to hospice consult, which has been placed by Dr. Oneill. It appears that Ms Lazaro' palliative performance scale is 40%. The family does not have a power of commercial real estate attorney or advanced directives. Ms. Lazaro states that she would like to be a full code at this time. The palliative care team will continue to follow daily until discharge. Thank you for this consultation. Dictated by SKIP Goff for Fransico Nash MD
--- NOTE | 2016-12-24 13:49 | PROGRESS NOTE ---
DATE: 12/24/2016 Today Ms. Lazaro referred to be doing okay. Did not have any major complaints. She does have some residual shortness of breath and some wheezing. OBJECTIVE: Vital signs: Blood pressure is 105/66, pulse of 82, respirations 16 , temperature 97.5 degrees. General: Ms. Poole is a 76-year-old female. She was in bed. She did not seem to be in any remarkable distress. HEENT: Mucosa is pink and moist. Anicteric. Acyanotic. Neck: Supple. There was no JVD. Cardiovascular: Regular rate and rhythm. There is a 3/6 murmur which radiates to the neck. Chest: Air entry is bilaterally reduced. There are some diffuse bilateral coarse crackles. Abdomen: Soft, nontender. Extremities: No pedal edema. 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 LABORATORY DATA: WBC is 6.51, hemoglobin is 12.1, platelet count of 194,000. Chemistry: Sodium is 134, potassium is 3.3, chloride is 84, bicarb is 43. The pH is 7.41, pCO2 was 81, PaO2 69. ASSESSMENT: 1. Acute mixed respiratory failure (hypoxemic and hypercarbic). Patient is more hypercarbic now than before. She will continue to be needing the BiPAP. 2. Hypotension on presentation due to sepsis, improved. 3. New onset atrial fibrillation with rapid ventricular response. The patient is currently in sinus and rate controlled. We will continue with amiodarone, apixaban for anticoagulation. 4. Severe aortic stenosis on echo. The patient has been evaluated by Cardiology. At this point in time, the patient is not candidate for any surgical intervention because of advanced metastatic lung disease. 5. History of squamous cell poorly differentiated cancer primary of the left lung. A CTA on this admission shows progression of the disease. 6. Pseudomonas multifocal pneumonia. Patient is currently on levofloxacin. Today is day 8. We plan to treat for total of 14 days. 7. Diabetes mellitus stable. 8. Acute on chronic diastolic heart failure. We think this was due to the atrial fibrillation RVR. Patient is now pretty much stable. 9. Protein calorie malnutrition. We will continue with supplements. GENERAL PLAN: Patient is relatively stable. She continues to be needing a BiPAP. I think the acute medical issues have been substantially addressed including the pneumonia and the atrial fibrillation RVR. I think the patient's general prognosis continues to be poor due to the underlying advanced metastatic lung cancer. I did speak with the son with regards to issues of goals of care and what they plan and I think at this point, they are leaning towards hospice and they are also waiting for a discussion with Palliative Care team this afternoon. We be will be waiting for their further recommendations. I understand from the nurse, the family have chosen [facility] services and patient is planned for discharge home tomorrow with hospice. MTDJude
[2016-12-24] MEDS: PROTONIX IV SCH (16:07)
[2016-12-24] MEDS: SODIUM CHLORIDE 0.9% INJ SCH (16:07)
[2016-12-24] MEDS: LEVAQUIN 750 MG/D5W 150 ML IV SCH (16:07)
[2016-12-24] MEDS: XANAX PO SCH ×2 (22:10→22:12)
[2016-12-24] MEDS ORDERED: ATIVAN ONE (23:30)
[2016-12-24] MEDS ORDERED: DIPRIVAN 1% 100 ML ONE (23:45)
[2016-12-24 23:57] LABS: URINE CULTURE NEEDED? NO; URINE MICRO REVIEW NEEDED? NO; URINE SOURCE CATH
[2016-12-25 00:03] LABS: BILIRUBIN URINE NEGATIVE (NEGATIVE); BLOOD URINE NEGATIVE (NEGATIVE); COLOR YELLOW; GLUCOSE URINE NEGATIVE (NEGATIVE); LEUKOCYTES URINE NEGATIVE (NEGATIVE); NITRITE URINE NEGATIVE (NEGATIVE); PH URINE 6.5; PROTEIN URINE NEGATIVE (NEGATIVE); SP GRAVITY URINE 1.016; TURBIDITY URINE CLEAR (CLEAR); UROBILINOGEN URINE NORMAL (NORMAL)
[2016-12-25 00:04] LABS: UR EPITHELIAL CELLS <10 /HPF (<10); URINE BACTERIA NEGATIVE /HPF; URINE RBC <10 /HPF (<10); URINE WBC <10 /HPF (<10)
[2016-12-25] MEDS: LEVOPHED 8 MG in D5 1/2 NS 250 ML IV SCH ×2 (00:40→20:23)
[2016-12-25] MEDS: DIPRIVAN 1% 100 ML IV SCH ×2 (01:00→02:50)
[2016-12-25 02:55] LABS: ALLEN TEST YES; BE 14.5 mmoll (-3.0-3.0); BLOOD TYPE ARTERIAL; DRAW SITE R RADIAL; METHB 1.5 % (0.0-1.5); O2(CT) 19.1 mL/dL (15.0-23.0); PO2(98.6) 197 mmHg (60-100); SAMPLE BLOOD; SAO2 100.7 % (95.0-100.0); THB 13.8 g/dL (11.5-17.4); pH(98.6) 7.39 (7.35-7.45)
[2016-12-25] MEDS: DUONEB (A & A) INH SCH ×4 (03:15→19:14)
[2016-12-25 04:56] LABS: ALLEN TEST YES; BE 16.2 mmoll (-3.0-3.0); BLOOD TYPE ARTERIAL; DRAW SITE R RADIAL; METHB 1.6 % (0.0-1.5); O2(CT) 17.4 mL/dL (15.0-23.0); PCO2(98.6) 45 mmHg (35-45); PO2(98.6) 167 mmHg (60-100); SAMPLE BLOOD; SAO2 100.1 % (95.0-100.0); SRATE 14 BPM; THB 12.6 g/dL (11.5-17.4); TVOL 500 mL
[2016-12-25 04:58] LABS: pH(98.6) 7.56 (7.35-7.45)
[2016-12-25 04:59] LABS: MODALITY VENTILATOR
[2016-12-25 05:06] LABS: PCO2(98.6) 71 mmHg (35-45)
[2016-12-25 05:07] LABS: MODALITY AMBU BAG
[2016-12-25 05:37] LABS: BASO% 0.1 % (0.0-0.8); EOS# 0.15 X1000 (0.0-0.7); EOS% 0.9 % (0.0-10.0); HEMATOCRIT 37.1 % (37.0-47.0); HEMOGLOBIN 12.5 g/dL (12.0-16.0); IMM GRAN# 0.15 X1000 (0.0-0.04); IMM GRAN% 0.9 % (0.0-0.5); LYMPH# 0.29 X1000 (1.2-3.4); LYMPH% 1.8 % (20.5-51.1); MANUAL DIFF NEEDED? YES; MCH 31.6 PG (27-31); MCHC 33.7 g/dL (33-37); MCV 93.9 FL (81-99); MONO# 1.57 X1000 (0.11-0.59); MONO% 9.9 % (1.7-9.3); MPV 10.6 FL (7.4-10.4); NEUT% 86.4 % (42.2-75.2); PLT 265 X1000 (130-400); RBC 3.95 XMIL (4.2-5.4)
[2016-12-25] MEDS ORDERED: NS 500 ML IV SCH (06:15)
[2016-12-25] MEDS ORDERED: NS 1,000 ML IV SCH (06:15)
[2016-12-25] MEDS ORDERED: ATIVAN IV PRN (06:34)
[2016-12-25] MEDS ORDERED: MORPHINE IV PRN (06:34)
[2016-12-25] MEDS ORDERED: DIPRIVAN 1% 0 ML ONE (06:44)
[2016-12-25 07:11] LABS: BANDS 6 % (0-1); LYMPHS 2 % (21-51); MONO 10 % (1-9)
[2016-12-25] MEDS: HUMALOG SUBQ SCH ×4 (07:56→20:02)
[2016-12-25] MEDS: ELIQUIS PO SCH (09:27)
[2016-12-25] MEDS: CORDARONE PO SCH (09:27)
[2016-12-25] MEDS: LANTUS SUBQ SCH (09:27)
--- NOTE | 2016-12-25 12:03 | PROGRESS NOTE ---
DATE: 12/25/2016 SUBJECTIVE: Ms. Lazaro had some issues last night resulting in respiratory distress. She had a brief course of CPR with a dose of epinephrine given. She was ultimately intubated, transferred down to the ICU. Presently, she is off any pressors. She is off propofol. She is responding to commands. She is on minimal vent settings presently. PHYSICAL EXAMINATION: Vital Signs: Currently her heart rate is in the 70s. She is in sinus. She is afebrile. Blood pressure 107/59. General: No acute distress. Cardiovascular: She is in a regular rate and rhythm. She has no obvious murmurs. No S3. Chest: She has coarse breath sounds heard diffusely throughout all lung patel. She has no increased work of breathing. Abdomen: Soft, nontender, nondistended. She has no obvious organomegaly. Skin: Warm and dry throughout. PERTINENT DATA: White count 15.9, hematocrit 37, platelet count is 265,000. She has a left shift with bandemia. Her ABG had a pH of 7.39, pCO2 of 71, PO2 is 197. She has no chemistry data from today. ASSESSMENT: 1. Respiratory failure. 2. Lung cancer. 3. Atrial fibrillation. PLAN: Patient maintained sinus rhythm presently. I have no further recommendations. She has not had any atrial fibrillation recently, and reviewing the notes from the code last night, the event does not appear to be secondary to a cardiac event. Most likely she had issues with a respiratory event resulting in bradycardia that responded to adequate ventilation. The patient and the patient's family have been in consultation with hospice and may be moving that route. Hopefully, she can be extubated later today.
[2016-12-25] MEDS ORDERED: DIPRIVAN 1% 100 ML IV SCH (15:30)
[2016-12-25] MEDS: LEVAQUIN 750 MG/D5W 150 ML IV SCH (16:07)
[2016-12-25] MEDS: PROTONIX IV SCH (16:07)
[2016-12-25] MEDS: SODIUM CHLORIDE 0.9% INJ SCH (16:12)
[2016-12-25] MEDS: DILAUDID IV PRN ×2 (17:15→22:14)
--- NOTE | 2016-12-25 17:41 | PROGRESS NOTE ---
DATE: 12/25/2016 This is a 76-year-old with a history of non-small cell lung cancer followed by Dr. Garcias and Dr. Nash. Also a history type 2 diabetes mellitus type 2, hypertension. Presented from the [facility] for hypotension. She was in her normal state of health for the most part. The patient was actually here last week and son said she was coughing up large chunks of blood and tissue. She was sent home from the ER with nonspecific hemoptysis. Since that time she has been somewhat weak but has not had any worsening shortness of breath. There has been no chest pain. No new or worsening hemoptysis. She went to the [facility], scheduled for chemotherapy and she was noted to have hypotension, systolic pressures in the 70s. At that time EMS was called and she was sent here. Her initial vital signs were somewhat low in the past but over time systolic pressures were in the 80s and was requiring Levophed. Did not have tachycardia and was not febrile. PAST MEDICAL HISTORY: 1. Non-small cell lung cancer followed by Dr. Nash and Dr. Garcias. 2. Diabetes mellitus type 2. 3. Hypertension. 4. Gastroesophageal reflux disease. Bronchoscopy and lung biopsies in the past. Large bowel resection with colostomy and reversal of colostomy secondary to repair of bowel perforation. 5. Appendectomy. 6. Cataract removal both eyes. She was admitted, treated for hypotension, unclear etiology, initially multifocal pneumonia was treated though and treated as if she had sepsis. History of squamous cell poorly differentiated lung cancer. CTA of the lungs done on admission showed worsening disease in the lungs. The patient was under the care of the care of Dr. Garcias. Dr. Tucker was consulted and continued to work on her air and gas exchange. Continue broad-spectrum antibiotics with fluid resuscitation. She does have acute mixed respiratory failure, hypoxemic, hypercarbic and she required BiPAP. [place] hypotension was sepsis and it was improving and new onset of atrial fibrillation with rapid ventricular rate which they worked on controlling. Severe aortic stenosis. Cardiology was following. They want to pursue nonsurgical therapy because of her metastatic lung disease. History of squamous cell poorly differentiated lung cancer primary in the left lung. CTA shows progression of the multifocal pneumonia. Sputum positive for pseudomonas on levofloxacin, was treated. Patient followed by Dr. Acosta as well. She had not had any atrial fib recently and had an event last night, and she was coded, intubated and moved to the unit. PHYSICAL EXAMINATION: Temp 97 degrees, pulse 90, respirations 14, blood pressure 106/53, CVP less than 6 cm.Lungs: Clear in all lung patel. Cardiovascular: Regular rate without murmur or S3. Abdomen: Soft, nontender. Skin: Warm and dry. LAB: White count 29441, hematocrit 37, platelet count 265,000. Blood sugar 119, 123, 133. ASSESSMENT AND PLAN: 1. Acute mixed respiratory failure, hypoxemic hypercarbic. Patient more hypercarbic than before. Continue BiPAP. 2. Hypertension. Presented with sepsis. This is improving. 3. New onset atrial fibrillation with rapid ventricular response. Patient currently rate is controlled, and I think back in atrial fib now. 4. Severe aortic stenosis on echo. Not a surgical candidate because of metastatic colon cancer. 5. Squamous cell poorly differentiated cancer in left lung. CTA on this admission shows progression of disease. 6. Pseudomonas multifocal pneumonia. Patient on levofloxacin. 7. Diabetes mellitus. 8. Acute on chronic diastolic heart failure. Patient in atrial fib, rapid ventricular rate. 9. Protein calorie malnutrition. We will continue management. Apparently she is uncomfortable. We tried some propranolol but it dropped her pressure. Note: I am going to ask Dr. Oliveira to help advise especially with Pseudomonas in the sputum. Advise whether we need 2 antibiotics for treatment. Blood cultures from 12/16 with no growth. Sputum culture from 12/16 with Pseudomonas aeruginosa.
[2016-12-25] MEDS ORDERED: D5 NS 500 ML IV SCH (17:45)
[2016-12-25] MEDS: D5 NS 1,000 ML IV SCH ×2 (18:05→23:29)
[2016-12-25] MEDS: LOVENOX SUBQ SCH (18:11)
[2016-12-26] MEDS: DUONEB (A & A) INH SCH ×4 (03:15→19:11)
[2016-12-26] MEDS: D5 NS 1,000 ML IV SCH ×4 (03:58→15:28)
[2016-12-26 04:54] LABS: ALLEN TEST YES; BE 15.3 mmoll (-3.0-3.0); BLOOD TYPE ARTERIAL; DRAW SITE R RADIAL; PO2(98.6) 104 mmHg (60-100); SAMPLE BLOOD; SRATE 14 BPM; TVOL 500 mL; pH(98.6) 7.51 (7.35-7.45)
[2016-12-26 04:56] LABS: PCO2(98.6) 51 mmHg (35-45)
[2016-12-26 04:57] LABS: MODALITY VENTILATOR
[2016-12-26 05:14] LABS: BASO% 0.1 % (0.0-0.8); HEMATOCRIT 31.3 % (37.0-47.0); HEMOGLOBIN 10.4 g/dL (12.0-16.0); IMM GRAN# 0.04 X1000 (0.0-0.04); IMM GRAN% 0.4 % (0.0-0.5); LYMPH# 0.27 X1000 (1.2-3.4); LYMPH% 2.7 % (20.5-51.1); MANUAL DIFF NEEDED? YES; MCHC 33.2 g/dL (33-37); MCV 93.4 FL (81-99); MONO# 1.05 X1000 (0.11-0.59); MONO% 10.6 % (1.7-9.3); MPV 10.5 FL (7.4-10.4); NEUT% 85.2 % (42.2-75.2); PLT 187 X1000 (130-400); RBC 3.35 XMIL (4.2-5.4)
[2016-12-26] MEDS: DILAUDID IV PRN ×3 (05:27→21:54)
[2016-12-26] MEDS: LOVENOX SUBQ SCH (05:28)
[2016-12-26 06:04] LABS: POTASSIUM 3.5 mmol/L (3.5-5.1)
[2016-12-26] MEDS: HUMALOG SUBQ SCH ×4 (06:11→21:04)
[2016-12-26 06:30] LABS: LYMPHS 9 % (21-51); MONO 4 % (1-9)
--- NOTE | 2016-12-26 07:57 | Diag Imaging Result Document ---
PROCEDURE NAME: CHEST-1 VIEW - 12/26/2016 ERECT AP PORTABLE CHEST: TIME: 0520 hours. FINDINGS: There is an endotracheal tube with its tip at the thoracic inlet. There is pleural thickening and volume loss in the left upper lobe. The alveolar opacity in the perihilar region on the left has improved slightly since 12/23/2016. Otherwise, the appearance of the chest has not changed significantly. IMPRESSION: Slight improvement in left upper lobe pneumonia.
[2016-12-26] MEDS: LEVOPHED 8 MG in D5 1/2 NS 250 ML IV SCH (08:45)
[2016-12-26] MEDS ORDERED: LOVENOX SUBQ SCH (09:00)
--- NOTE | 2016-12-26 09:20 | PROGRESS NOTE ---
DATE: 12/26/2016 SUBJECTIVE: Ms. Lazaro is awake, off sedation right now. Appears comfortable, intubated. OBJECTIVE: Vital signs: Temperature 97.5 degrees, pulse 76, respirations 14, blood pressure 98/49. HEENT: Pupils are equal, round. Lungs: Lungs are clear in all lung patel. Cardiovascular exam: Regular rhythm and rate without murmur or S3. Abdomen: Soft. Skin: Warm and dry. : Good urine output. LAB: White count 9950 that had come down from 15,000 yesterday, hematocrit 31, platelet count 187,000. Sodium 133, potassium 3.5, chloride 89, BUN 23, creatinine 1.0. Blood sugars 153, 161 183. X-RAYS: Chest x-ray from this morning: Slight improvement in left upper lobe pneumonia, endotracheal tube with its tip at the thoracic inlet. There is pleural thickening and volume loss of left upper lobe, alveolar opacity in the perihilar region on the left improved slightly since 12/23/2013. ASSESSMENT AND PLAN: 1. Acute mixed respiratory failure, hypoxemic, hypercarbic. Patient more hypercarbic and was intubated. 2. Hypotension, presented with sepsis and is improving now. Blood pressure is doing well. 3. Atrial fibrillation with rapid ventricular rate. Aware. Appears to be controlled. 4. Aortic stenosis by echocardiogram, severe. 5. Metastatic lung cancer. 6. She has poorly differentiated cancer in the left lung. Computed tomography angiography showed progression of the disease. Review of orders: Lovenox 60 mg subcutaneous q. 12 hours. She is on dextrose, D 5 normal saline at 125 mL an hour, Protonix 40 mg IV q. 24 hours, Levaquin 750 mg daily. Continue present orders.
[2016-12-26] MEDS: SODIUM CHLORIDE 0.9% INJ SCH (15:28)
[2016-12-26] MEDS: LEVAQUIN 750 MG/D5W 150 ML IV SCH (15:28)
[2016-12-26] MEDS: PROTONIX IV SCH (15:28)
[2016-12-27] MEDS: LEVOPHED 8 MG in D5 1/2 NS 250 ML IV SCH (01:15)
[2016-12-27] MEDS: D5 NS 1,000 ML IV SCH ×3 (01:15→18:18)
[2016-12-27] MEDS: DUONEB (A & A) INH SCH ×4 (02:42→20:20)
[2016-12-27] MEDS: VERSED IV PRN (03:36)
[2016-12-27 04:48] LABS: ALLEN TEST YES; BE 9.6 mmoll (-3.0-3.0); BLOOD TYPE ARTERIAL; DRAW SITE R RADIAL; METHB 1.2 % (0.0-1.5); O2(CT) 17.6 mL/dL (15.0-23.0); PO2(98.6) 68 mmHg (60-100); SAMPLE BLOOD; SAO2 95.6 % (95.0-100.0); SRATE 10 BPM; THB 13.7 g/dL (11.5-17.4); TVOL 500 mL; pH(98.6) 7.39 (7.35-7.45)
[2016-12-27 04:49] LABS: MODALITY VENTILATOR; PCO2(98.6) 61 mmHg (35-45)
[2016-12-27] MEDS: HUMALOG SUBQ SCH ×4 (06:31→21:36)
[2016-12-27] MEDS: DILAUDID IV PRN ×3 (06:36→21:40)
[2016-12-27 07:07] LABS: HEMATOCRIT 29.7 % (37.0-47.0); HEMOGLOBIN 9.6 g/dL (12.0-16.0); IMM GRAN# 0.09 X1000 (0.0-0.04); IMM GRAN% 1.1 % (0.0-0.5); LYMPH# 0.27 X1000 (1.2-3.4); LYMPH% 3.2 % (20.5-51.1); MANUAL DIFF NEEDED? YES; MCHC 32.3 g/dL (33-37); MCV 95.8 FL (81-99); MONO# 0.69 X1000 (0.11-0.59); MONO% 8.1 % (1.7-9.3); MPV 10.9 FL (7.4-10.4); NEUT% 87.6 % (42.2-75.2); PLT 157 X1000 (130-400)
[2016-12-27 07:20] LABS: AGAP 9; BUN 13 mg/dL (8-22); CALCIUM 7.4 mg/dL (8.8-10.2); CHLORIDE 95 mmol/L (98-107); COSMO 273; POTASSIUM 3.3 mmol/L (3.5-5.1); SODIUM 135 mmol/L (136-145); TCO2 31 mmol/L (25-35)
[2016-12-27 08:12] LABS: BANDS 2 % (0-1); EOS 2 % (1-10); LYMPHS 8 % (21-51); MONO 6 % (1-9)
--- NOTE | 2016-12-27 08:38 | Diag Imaging Result Document ---
PROCEDURE NAME: CHEST-1 VIEW - 12/27/2016 PORTABLE CHEST: COMPARISON: 12/26/2016. FINDINGS: Endotracheal tube and central venous catheter remain in place. There are infiltrate, volume loss, and pleural thickening on the left which appear essentially stable. There is mild infiltrate or scarring at the right upper lobe which appears stable. There has been interval decrease in mild atelectasis or infiltrate at the right base. There are no other acute changes identified. Heart size is normal. IMPRESSION: Stable exam compared to prior, other than decrease in mild atelectasis or infiltrate at the right base. [facility]
[2016-12-27] MEDS ORDERED: POTASSIUM CHLORIDE 40 MEQ/SWI 100 ML IV ONE (09:43)
[2016-12-27] MEDS ORDERED: MAGNESIUM SULFATE 2 GM/S.W.I. 50 ML IV ONE (09:44)
--- NOTE | 2016-12-27 10:28 | PROGRESS NOTE ---
DATE: 12/27/2016 SUBJECTIVE: Ms. Lazaro intubated. Appears comfortable. Remains afebrile. OBJECTIVE: Temperature 97.2 degrees, pulse 65, respirations 12, blood pressure 98/44. Pupils are equal and round. Lungs are clear in all lung patel. Cardiovascular: Regular rhythm and rate without murmur or S3. Urine output was 2500 mL. Blood sugars 110 and 196. LABORATORY DATA: White count 8570, hematocrit 29, platelet count 157,000. Sodium 135, potassium 3.3, chloride 95, bicarb 31. BUN 13, creatinine 0.6. Blood sugars 166, 146, 196. Chest x-ray: Stable exam. Decreased mild atelectasis or infiltrate in the right base. ASSESSMENT AND PLAN: 1. Acute mixed respiratory failure, hypoxemia, hypercarbic. The patient more hypercarbic and had to be re-intubated. Gas and air exchange improving. Continue to try to wean. 2. Hypertension. Presented with sepsis, improved. 3. Atrial fibrillation. Ventricular rate controlled. 4. Aortic stenosis on echocardiogram which is severe. 5. Metastatic lung cancer. 6. Poorly differentiated cancer of the left lung and chest x-ray showed progression. Continue present orders. Patient on Protonix 40 mg IV q. 24 hours, Levaquin 750 mg a day and getting D5 normal saline at 125 mL an hour. Creatinine looks good. Urine output has improved.
[2016-12-27] MEDS: LASIX IV SCH (12:32)
[2016-12-27] MEDS: SODIUM CHLORIDE 0.9% INJ SCH (15:38)
[2016-12-27] MEDS: PROTONIX IV SCH (15:38)
[2016-12-27] MEDS: LEVAQUIN 750 MG/D5W 150 ML IV SCH (15:38)
[2016-12-28] MEDS: D5 NS 1,000 ML IV SCH ×2 (02:00→10:02)
[2016-12-28] MEDS: LASIX IV SCH ×2 (02:18→02:19)
[2016-12-28] MEDS: DILAUDID IV PRN ×2 (02:19→20:12)
[2016-12-28] MEDS: LEVOPHED 8 MG in D5 1/2 NS 250 ML IV SCH (02:36)
[2016-12-28] MEDS: DUONEB (A & A) INH SCH ×4 (03:30→20:00)
[2016-12-28 05:34] LABS: BASO% 0.1 % (0.0-0.8); EOS# 0.18 X1000 (0.0-0.7); EOS% 1.7 % (0.0-10.0); HEMATOCRIT 32.5 % (37.0-47.0); HEMOGLOBIN 10.2 g/dL (12.0-16.0); IMM GRAN# 0.03 X1000 (0.0-0.04); IMM GRAN% 0.3 % (0.0-0.5); LYMPH% 2.9 % (20.5-51.1); MANUAL DIFF NEEDED? YES; MCH 30.5 PG (27-31); MCHC 31.4 g/dL (33-37); MCV 97.3 FL (81-99); MONO# 0.64 X1000 (0.11-0.59); MONO% 6.1 % (1.7-9.3); MPV 10.2 FL (7.4-10.4); NEUT% 88.9 % (42.2-75.2); PLT 127 X1000 (130-400); RBC 3.34 XMIL (4.2-5.4)
[2016-12-28 05:39] LABS: ALLEN TEST YES; BE 14.1 mmoll (-3.0-3.0); BLOOD TYPE ARTERIAL; DRAW SITE R RADIAL; METHB 1.5 % (0.0-1.5); O2(CT) 13.9 mL/dL (15.0-23.0); PO2(98.6) 77 mmHg (60-100); SAMPLE BLOOD; SAO2 99.5 % (95.0-100.0); SRATE 10 BPM; THB 10.4 g/dL (11.5-17.4); TVOL 500 mL; pH(98.6) 7.42 (7.35-7.45)
[2016-12-28 05:40] LABS: MODALITY VENTILATOR
[2016-12-28 05:41] LABS: PCO2(98.6) 63 mmHg (35-45)
[2016-12-28 05:49] LABS: LYMPHS 2 % (21-51); MONO 2 % (1-9)
[2016-12-28 06:02] LABS: AGAP 9; BUN 7 mg/dL (8-22); CALCIUM 7.4 mg/dL (8.8-10.2); CHLORIDE 95 mmol/L (98-107); COSMO 277; POTASSIUM 2.9 mmol/L (3.5-5.1); SODIUM 139 mmol/L (136-145); TCO2 35 mmol/L (25-35)
[2016-12-28] MEDS: HUMALOG SUBQ SCH ×4 (06:06→21:00)
--- NOTE | 2016-12-28 06:52 | Diag Imaging Result Document ---
PROCEDURE NAME: CHEST-1 VIEW - 12/28/2016 PORTABLE CHEST: COMPARISON: Compared to 12/27/2016. FINDINGS: No change in the endotracheal tube or in the right-sided [id number]. No pneumothorax. There are dense infiltrates in the upper and mid left lung and in the upper right lung. There is volume loss to the left hemithorax with pleural thickening and a small effusion. The left hemidiaphragm is elevated. The heart is not enlarged. Mild vascular distension. IMPRESSION: No interval improvement.
--- NOTE | 2016-12-28 10:11 | PROGRESS NOTE ---
DATE: 12/28/2016 SUBJECTIVE: Ms. Lazaro, to recall, presented on 12/16/2013. She came in with hypotension. She sees Dr. Denisse Garcias and Dr. Nash. She has a history non-small cell lung cancer, followed by Dr. Garcias and Dr. Nash. Also a history of type 2 diabetes mellitus and hypertension. Presented with hypotension. Developed respiratory failure. She is awake today. Family was at the bedside yesterday and were considering whether they wanted to withdraw treatment. A very emotional time. states they are coming on their anniversary. PHYSICAL EXAMINATION: Vital Signs: Temperature 97.5 degrees, pulse 73, respirations 14, blood pressure 114/62. HEENT: Pupils are equal and round. CVP less than 6 cm. Lungs: Clear in all lung patel anterolateral. Is and Os: Urine output appears to be 3600 mL. LAB: White count 10,520, hematocrit 32, platelet count 127,000. Electrolytes: Sodium 139, potassium 2.9, chloride 95, bicarb 35, BUN 7, creatinine 0.5. Blood sugars 196, 111, 190, 128. Note that chest x-ray from this morning, no interval improvement. No change in the endotracheal tube or right-sided Port-A-Cath. No pneumothorax. There are dense infiltrates in the upper and mid left lung, and the upper right lung. There is volume loss and left hemothorax, pleural thickening, small effusion. Left hemidiaphragm was elevated. ASSESSMENT AND PLAN: 1. Acute mixed respiratory failure, hypoxemia, hypercarbic. Had to be reintubated. Slow to be able to wean. Continue present measures. 2. Non-small cell lung cancer. Aware. 3. Atrial fibrillation, ventricular rate controlled. 4. Aortic stenosis, severe per echocardiogram, multifactorial. It will be very difficult to get her off the ventilator. Continue efforts at the present time. 5. On Lasix 40 mg intravenous every 12 hours. She is on D5 normal saline at 125 mL an hour, Protonix 40 mg intravenous daily, Levaquin 750 mg daily.
[2016-12-28] MEDS ORDERED: ZOFRAN IV PRN (11:54)
[2016-12-28] MEDS ORDERED: D5W + KCL 20 MEQ 1,000 ML IV ONE (13:00)
[2016-12-28] MEDS: LASIX 100 MG in NS 90 ML IV SCH (13:22)
[2016-12-28] MEDS: LEVAQUIN 750 MG/D5W 150 ML IV SCH (16:04)
[2016-12-28] MEDS: PROTONIX IV SCH (16:04)
[2016-12-28] MEDS: SODIUM CHLORIDE 0.9% INJ SCH (16:04)
[2016-12-28] MEDS: VERSED IV PRN (23:29)
[2016-12-29] MEDS: DUONEB (A & A) INH SCH ×4 (03:44→19:51)
[2016-12-29] MEDS: DILAUDID IV PRN ×2 (04:06→20:39)
[2016-12-29] MEDS: LEVOPHED 8 MG in D5 1/2 NS 250 ML IV SCH ×2 (04:39→21:23)
[2016-12-29 04:40] LABS: ALLEN TEST YES; BE 15.7 mmoll (-3.0-3.0); BLOOD TYPE ARTERIAL; DRAW SITE R RADIAL; METHB 1.7 % (0.0-1.5); O2(CT) 13.9 mL/dL (15.0-23.0); PO2(98.6) 68 mmHg (60-100); SAMPLE BLOOD; SAO2 96.6 % (95.0-100.0); SRATE 10 BPM; THB 10.6 g/dL (11.5-17.4); TVOL 500 mL; pH(98.6) 7.37 (7.35-7.45)
[2016-12-29 04:41] LABS: MODALITY VENTILATOR
[2016-12-29 04:42] LABS: PCO2(98.6) 76 mmHg (35-45)
[2016-12-29 05:09] LABS: EOS# 0.17 X1000 (0.0-0.7); EOS% 1.6 % (0.0-10.0); HEMATOCRIT 32.3 % (37.0-47.0); HEMOGLOBIN 10.3 g/dL (12.0-16.0); IMM GRAN# 0.03 X1000 (0.0-0.04); IMM GRAN% 0.3 % (0.0-0.5); LYMPH# 0.24 X1000 (1.2-3.4); LYMPH% 2.3 % (20.5-51.1); MANUAL DIFF NEEDED? YES; MCH 31.3 PG (27-31); MCHC 31.9 g/dL (33-37); MCV 98.2 FL (81-99); MONO# 0.74 X1000 (0.11-0.59); MONO% 7.1 % (1.7-9.3); MPV 10.2 FL (7.4-10.4); NEUT% 88.7 % (42.2-75.2); PLT 115 X1000 (130-400); RBC 3.29 XMIL (4.2-5.4)
[2016-12-29 05:32] LABS: AGAP 6; BUN 7 mg/dL (8-22); CALCIUM 7.3 mg/dL (8.8-10.2); CHLORIDE 91 mmol/L (98-107); COSMO 273; POTASSIUM 3.1 mmol/L (3.5-5.1); SODIUM 135 mmol/L (136-145); TCO2 38 mmol/L (25-35)
[2016-12-29] MEDS: HUMALOG SUBQ SCH ×4 (06:22→20:14)
[2016-12-29 06:33] LABS: BANDS 4 % (0-1); LYMPHS 2 % (21-51); MONO 6 % (1-9)
--- NOTE | 2016-12-29 07:40 | Diag Imaging Result Document ---
PROCEDURE NAME: CHEST-1 VIEW - 12/29/2016 AP PORTABLE CHEST ERECT, 12/29/2016 AT 0520 HOURS: FINDINGS: There is an endotracheal tube with its tip approximately 4 cm above the aneudy. There is a Port-A-Cath on the right. There is apical pleural thickening on the left. There is retraction of the az superiorly particularly on the left side. There are patchy opacities in both upper lobes particularly the left upper lobe. Overall, there has been some improvement in the expansion of the right lung compared to 12/28/2016, otherwise, there has been no significant change. There has been no appreciable change compared to 12/27/2016. IMPRESSION: Upper lobe pneumonia particularly on the left with volume loss. The possibility of a mild degree of pulmonary edema cannot be excluded.
[2016-12-29] MEDS: LASIX 100 MG in NS 90 ML IV SCH (08:08)
[2016-12-29] MEDS ORDERED: POTASSIUM CHLORIDE 40 MEQ/SWI 100 ML IV ONE (09:51)
--- NOTE | 2016-12-29 10:58 | PROGRESS NOTE ---
DATE: 12/29/2016 SUBJECTIVE: Ms. Lazaro is awake, off sedation, and she was able write on a board that she cannot breathe, does not feel like she can breathe. I explained that she is still intubated, still working on her breathing. PHYSICAL EXAMINATION: Vital Signs: Temperature 98 degrees, pulse 69, respirations 10, and blood pressure 109/50. Lungs: Clear in all lung patel. Cardiovascular Examination: Regular rhythm and rate without murmur or S3. Abdomen: Soft. Skin: Warm and dry. Is and Os: Urine output 2300 mL. LAB: White count 10,390, hematocrit 32, platelet count 115,000. Sodium 135, potassium 3.1, chloride 91, bicarb 38, BUN 7, creatinine 0.6, blood sugar 74, 116, and 180. Chest x-ray today, upper lobe pneumonia, particularly on the left with volume loss. Possibility of mild degree of pulmonary edema. Endotracheal tube 4 cm above the aneudy. Port-A-Cath on the right. Apical pleural thickening on the left. ASSESSMENT AND PLAN: 1. Acute mixed respiratory failure, hypoxemia, hypercarbic. Continue to try and wean. Has what appears to be underlying pneumonia. Continue to treat. 2. Non-small cell lung cancer. Very well could have postobstructive pneumonia. 3. Atrial fibrillation. Ventricular rate controlled. 4. Aortic stenosis which is severe. Continue present management. Still attempting to try and wean, if able. 5. Review of her medications. Lasix 100 mg. She is getting a Lasix drip right now ordered by Dr. Oscar at 5 mL an hour. They have her on Levaquin and on Protonix 40 mg every 14 hours. Still on the Levophed. 6. Review again of lab. We will supplement potassium. Calcium a little low.
--- NOTE | 2016-12-29 11:53 | Diag Imaging Result Document ---
PROCEDURE NAME: CHEST/ABD TUBE PLACEMENT - 12/29/2016 AP PORTABLE CHEST AND ABDOMEN AT 1100 HOURS: INDICATION: NG tube placement. FINDINGS: The NG tube tip is not visible beyond the area of the esophagogastric junction. There is continued opacification throughout much of the left lung. The bowel gas pattern is nonspecific. IMPRESSION: NG tube not clearly within the stomach. The findings were called to the ICU at 1124 hours.
[2016-12-29 12:10] LABS: MAGNESIUM 0.8 mg/dL (1.5-2.7)
[2016-12-29] MEDS ORDERED: MAGNESIUM SULFATE 2 GM/S.W.I. 50 ML IV ONE (12:31)
--- NOTE | 2016-12-29 13:29 | Diag Imaging Result Document ---
PROCEDURE NAME: CHEST/ABD TUBE PLACEMENT - 12/29/2016 AP PORTABLE CHEST AND ABDOMEN: INDICATION: NG tube placement. FINDINGS: The NG tube tip is in the distal stomach. There is slightly more small and large bowel gas seen over the upper abdomen than on the previous study. IMPRESSION: NG tube in stomach.
[2016-12-29] MEDS: SODIUM CHLORIDE 0.9% INJ SCH (16:42)
[2016-12-29] MEDS: LEVAQUIN 750 MG/D5W 150 ML IV SCH (16:42)
[2016-12-29] MEDS: PROTONIX IV SCH (16:42)
[2016-12-30] MEDS: DILAUDID IV PRN ×3 (01:07→20:41)
[2016-12-30] MEDS: DUONEB (A & A) INH SCH ×4 (03:39→19:55)
[2016-12-30 04:35] LABS: ALLEN TEST YES; BE 16.5 mmoll (-3.0-3.0); BLOOD TYPE ARTERIAL; DRAW SITE R RADIAL; METHB 1.4 % (0.0-1.5); O2(CT) 20.7 mL/dL (15.0-23.0); PO2(98.6) 105 mmHg (60-100); SAMPLE BLOOD; SAO2 100.1 % (95.0-100.0); SRATE 10 BPM; THB 15.3 g/dL (11.5-17.4); TVOL 500 mL
[2016-12-30 04:36] LABS: MODALITY VENTILATOR; PCO2(98.6) 74 mmHg (35-45)
[2016-12-30 04:44] LABS: BASO% 0.1 % (0.0-0.8); EOS# 0.19 X1000 (0.0-0.7); EOS% 1.9 % (0.0-10.0); HEMATOCRIT 30.5 % (37.0-47.0); IMM GRAN# 0.03 X1000 (0.0-0.04); IMM GRAN% 0.3 % (0.0-0.5); LYMPH# 0.33 X1000 (1.2-3.4); LYMPH% 3.3 % (20.5-51.1); MANUAL DIFF NEEDED? YES; MCH 31.8 PG (27-31); MCHC 32.8 g/dL (33-37); MCV 97.1 FL (81-99); MONO# 0.81 X1000 (0.11-0.59); MONO% 8.2 % (1.7-9.3); MPV 10.3 FL (7.4-10.4); NEUT% 86.2 % (42.2-75.2); PLT 103 X1000 (130-400); RBC 3.14 XMIL (4.2-5.4)
[2016-12-30 05:02] LABS: BANDS 6 % (0-1); LYMPHS 4 % (21-51); MONO 10 % (1-9)
[2016-12-30 05:10] LABS: AGAP 8; BUN 9 mg/dL (8-22); CALCIUM 7.3 mg/dL (8.8-10.2); CHLORIDE 90 mmol/L (98-107); COSMO 277; SODIUM 139 mmol/L (136-145); TCO2 41 mmol/L (25-35)
[2016-12-30] MEDS: HUMALOG SUBQ SCH ×4 (06:55→20:42)
--- NOTE | 2016-12-30 07:22 | Diag Imaging Result Document ---
PROCEDURE NAME: CHEST-1 VIEW - 12/30/2016 SINGLE FRONTAL RADIOGRAPH OF THE CHEST: COMPARISON: 12/29/2016. FINDINGS: ET tube and right chest port are in stable position. NG tube projects below the diaphragm and out of the field of view. Apical pleural thickening is again noted. Patchy opacities at the upper lung zones bilaterally persist, most prominent on the left. No new consolidations are appreciated. Cardiac silhouette is stable. IMPRESSION: Stable chest.
[2016-12-30] MEDS: SOLU-CORTEF IV SCH ×3 (08:02→19:29)
--- NOTE | 2016-12-30 11:45 | PROGRESS NOTE ---
DATE: 12/30/2016 SUBJECTIVE: Today, Ms. Lazaro continues to be stable, intubated. I saw the and a daughter at bedside, and her attending nurse was also at the bedside at the time of the encounter. OBJECTIVE: Vital Signs: Blood pressure is 106/58, pulse of 71, respirations are 15, temperature is 98.4 degrees. General Examination: Ms. Lazaro is a 76-year-old, female. She is in bed, intubated. Seems to be synchronized well with the ventilator. HEENT: Mucosa is pink and moist. Anicteric. Acyanotic. Neck: Supple. Chest: Air entry is bilaterally reduced. There are bibasilar crepitations. Cardiovascular: Regular rate and rhythm. There is about a 3/6 murmur and possible TR murmur as well. Abdomen: Distended and nontender. Extremities: No pedal edema. Patient seems to have some fluid retention in the upper extremities. NETWORK TECHNICAL ANALYST: She is alert. She follows some basic commands. Laboratory Data: WBC is 9.98, hemoglobin is 10, platelet count of 103,000. Chemistry reviewed. Potassium is 3. ABG reviewed. PCO2 is 74. Rest of the numbers are acceptable. ASSESSMENT: 1. Mixed respiratory failure, hypoxemic and hypercarbic. Patient continues to be on the ventilator. 2. Non-small cell lung cancer. 3. Left postobstructive pneumonia. 4. Atrial fibrillation, rapid ventricular response ,currently rate controlled. 5. Severe aortic stenosis. Patient is not a candidate for any surgical intervention because of metastatic cancer. 6. Protein calorie malnutrition. Patient is getting nasogastric tube feedings. 7. Diabetes mellitus. Stable. GENERAL PLAN: Patient seems to be stable. CO2 is high, continues to be on the ABG this morning. We will be waiting on pulmonary medicine to give us recommendations as to when patient will be able to come off the ventilator. For now, we are going to continue with the current care.
[2016-12-30 12:07] LABS: MAGNESIUM 1.1 mg/dL (1.5-2.7)
[2016-12-30] MEDS: LEVAQUIN 750 MG/D5W 150 ML IV SCH (15:36)
[2016-12-30] MEDS: PROTONIX IV SCH (15:36)
[2016-12-30] MEDS: SODIUM CHLORIDE 0.9% INJ SCH (15:36)
--- NOTE | 2016-12-30 16:02 | PALLIATIVE CARE PROGRESS NOTE ---
DATE: 12/30/2016 SUBJECTIVE: Ms. Lazaro is currently intubated. She does not appear to be in any acute distress. OBJECTIVE: General: This is a 76-year-old female, who is mechanically ventilated. She does not appear to be in any acute distress. HEENT: Atraumatic, normocephalic. Neck: Supple. Cardiovascular: Normal S1, S2 with murmur. Pulmonary: Lung sounds are diminished with crackles to bilateral bases. Abdomen: Distended. Bowel sounds are active. Extremities: Pulses are palpable. Neurologic: She is alert and able to follow commands. ASSESSMENT AND PLAN: Currently Ms. Lazaro does not appear to be in any acute distress. She is able to answer yes and no questions. Her and son are at the bedside. We have discussed her current state of health. The palliative care team will continue to follow daily until discharge. Dictated by SKIP Goff for Fransico Nash MD
[2016-12-30] MEDS: LEVOPHED 8 MG in D5 1/2 NS 250 ML IV SCH (16:27)
[2016-12-31] MEDS: SOLU-CORTEF IV SCH ×4 (01:09→19:31)
[2016-12-31] MEDS: VERSED IV PRN ×5 (01:13→21:50)
[2016-12-31] MEDS: DILAUDID IV PRN ×4 (02:04→23:20)
[2016-12-31] MEDS: DUONEB (A & A) INH SCH ×4 (02:58→19:45)
[2016-12-31 04:26] LABS: ALLEN TEST YES; BE 16.5 mmoll (-3.0-3.0); BLOOD TYPE ARTERIAL; DRAW SITE R RADIAL; METHB 1.7 % (0.0-1.5); PO2(98.6) 69 mmHg (60-100); SAMPLE BLOOD; SAO2 96.1 % (95.0-100.0); SRATE 12 BPM; THB 13.9 g/dL (11.5-17.4); TVOL 500 mL; pH(98.6) 7.41 (7.35-7.45)
[2016-12-31 04:27] LABS: MODALITY VENTILATOR; PCO2(98.6) 71 mmHg (35-45)
[2016-12-31 06:10] LABS: AGAP 9; BUN 12 mg/dL (8-22); CALCIUM 7.5 mg/dL (8.8-10.2); CHLORIDE 89 mmol/L (98-107); COSMO 278; POTASSIUM 3.6 mmol/L (3.5-5.1); SODIUM 137 mmol/L (136-145); TCO2 39 mmol/L (25-35)
[2016-12-31] MEDS: HUMALOG SUBQ SCH ×4 (06:24→20:53)
[2016-12-31 06:33] LABS: EOS# 0.01 X1000 (0.0-0.7); EOS% 0.1 % (0.0-10.0); HEMATOCRIT 30.8 % (37.0-47.0); HEMOGLOBIN 9.8 g/dL (12.0-16.0); IMM GRAN# 0.02 X1000 (0.0-0.04); IMM GRAN% 0.2 % (0.0-0.5); LYMPH# 0.15 X1000 (1.2-3.4); LYMPH% 1.7 % (20.5-51.1); MANUAL DIFF NEEDED? YES; MCH 30.6 PG (27-31); MCHC 31.8 g/dL (33-37); MCV 96.3 FL (81-99); MONO# 0.49 X1000 (0.11-0.59); MONO% 5.4 % (1.7-9.3); MPV 10.7 FL (7.4-10.4); NEUT% 92.6 % (42.2-75.2); PLT 108 X1000 (130-400)
[2016-12-31 06:59] LABS: BANDS 1 % (0-1); LYMPHS 2 % (21-51); MONO 5 % (1-9)
--- NOTE | 2016-12-31 08:08 | Diag Imaging Result Document ---
PROCEDURE NAME: CHEST-1 VIEW - 12/31/2016 SINGLE FRONTAL RADIOGRAPH OF THE CHEST: COMPARISON: 12/30/2016. FINDINGS: Right chest port is stable. ET tube is stable. The NG tube projects below the diaphragm and is assumed to be in the stomach. Consolidations mainly involving the upper lung zones bilaterally are unchanged and are worst on the left. No new consolidations are identified. Cardiac silhouette is stable. IMPRESSION: Stable chest.
--- NOTE | 2016-12-31 10:43 | PROGRESS NOTE ---
DATE: 12/31/2016 SUBJECTIVE: This morning Ms. Lazaro referred to be doing fine. She is currently on weaning trial mode. OBJECTIVE: Vital signs: Blood pressure is 105/72, pulse of 84, respirations 17, temperature is 96.5 degrees. Patient is saturating 94% on 50% FiO2. General: Ms. Lazaro is a 76-year-old female. She is in bed. She did not seem to be in any distress. HEENT: Mucosa is pink and moist. Anicteric. Acyanotic. Neck: Supple. Chest: Air entry is bilaterally reduced. A few bibasilar crepitations. Cardiovascular: Regular rate and rhythm. There is a 3/6 murmur and also 2/6 TR murmur. Abdomen: Distended but nontender. No hepatosplenomegaly. Extremities: No pedal edema. PHARMACY TECHNOLOGY INSTRUCTOR: Patient is alert and oriented x4. There is no focal neurological deficit. LABORATORY DATA: CBC reviewed, unremarkable except for platelet count of 108,000. PH 7.41, pCO2 is 71, PO2 is 69,. Chemistry is also reviewed, unremarkable except for bicarb of 39. ASSESSMENT: 1. Mixed respiratory failure (hypoxemic and hypercarbic). Patient continues to be slightly hypercarbic and she is on ventilator. But, I think she is doing remarkably fine on the weaning trial and we might be able to extubate her today. 2. Kik-bhszb-okeh lung cancer. 3. Left postobstructive pneumonia. Patient is on antibiotics. 4. Atrial fibrillation with rapid ventricular response, new onset. The patient is currently rate controlled. 5. Severe aortic stenosis. Patient has been evaluated to be a nonsurgical candidate by cardiology. 6. Diabetes mellitus, stable. 7. Protein calorie malnutrition. PLAN: In general, I think patient is remarkably stable. She continues to retain CO2 but I think she is doing a whole lot better and all of her other numbers look much better under the ventilator. We might be able to extubate her today.
[2016-12-31] MEDS: LEVOPHED 8 MG in D5 1/2 NS 250 ML IV SCH (16:29)
[2016-12-31] MEDS: SODIUM CHLORIDE 0.9% INJ SCH (17:16)
[2016-12-31] MEDS: LEVAQUIN 750 MG/D5W 150 ML IV SCH (17:17)
[2016-12-31] MEDS: PROTONIX IV SCH (17:17)
[2017-01-01] MEDS: SOLU-CORTEF IV SCH ×4 (01:05→19:58)
[2017-01-01] MEDS: DILAUDID IV PRN ×3 (02:06→19:58)
[2017-01-01] MEDS: DUONEB (A & A) INH SCH ×5 (03:08→19:25)
[2017-01-01 04:38] LABS: ALLEN TEST YES; BE 19.2 mmoll (-3.0-3.0); BLOOD TYPE ARTERIAL; DRAW SITE R RADIAL; PO2(98.6) 68 mmHg (60-100); SAMPLE BLOOD; SRATE 12 BPM; TVOL 500 mL; pH(98.6) 7.41 (7.35-7.45)
[2017-01-01 04:39] LABS: MODALITY VENTILATOR; PCO2(98.6) 76 mmHg (35-45)
[2017-01-01 05:15] LABS: MANUAL DIFF NEEDED? YES
[2017-01-01 05:17] LABS: EOS# 0.03 X1000 (0.0-0.7); EOS% 0.4 % (0.0-10.0); HEMATOCRIT 29.9 % (37.0-47.0); HEMOGLOBIN 9.6 g/dL (12.0-16.0); IMM GRAN# 0.02 X1000 (0.0-0.04); IMM GRAN% 0.2 % (0.0-0.5); LYMPH# 0.15 X1000 (1.2-3.4); LYMPH% 1.8 % (20.5-51.1); MCHC 32.1 g/dL (33-37); MCV 96.5 FL (81-99); MONO% 6.1 % (1.7-9.3); MPV 10.4 FL (7.4-10.4); NEUT% 91.5 % (42.2-75.2); PLT 112 X1000 (130-400)
[2017-01-01 05:26] LABS: MAGNESIUM 1.3 mg/dL (1.5-2.7)
[2017-01-01 05:34] LABS: AGAP 7; BUN 17 mg/dL (8-22); CALCIUM 7.7 mg/dL (8.8-10.2); CHLORIDE 90 mmol/L (98-107); COSMO 281; POTASSIUM 3.4 mmol/L (3.5-5.1); SODIUM 138 mmol/L (136-145); TCO2 41 mmol/L (25-35)
[2017-01-01] MEDS: HUMALOG SUBQ SCH ×4 (06:01→19:59)
[2017-01-01 07:15] LABS: EOS 1 % (1-10); LYMPHS 2 % (21-51); MONO 6 % (1-9)
--- NOTE | 2017-01-01 07:59 | Diag Imaging Result Document ---
PROCEDURE NAME: CHEST-1 VIEW - 01/01/2017 PORTABLE CHEST X-RAY: COMPARISON: 12/31/2016. FINDINGS: Stable right chest port. Stable nasogastric tube. There is worsening in the ill- defined interstitial infiltrate throughout the right lung. Stable volume loss and dense infiltrates throughout the left lung. Heart size remains borderline enlarged. There are small effusions. IMPRESSION: Worsening from prior.
[2017-01-01] MEDS ORDERED: POTASSIUM PHOSPHATE 20 MMOL in NS 250 ML IV ONE (09:20)
[2017-01-01] MEDS ORDERED: MAGNESIUM SULFATE 2 GM/S.W.I. 50 ML IV ONE (09:21)
[2017-01-01 09:48] LABS: ALLEN TEST YES; BE 18.3 mmoll (-3.0-3.0); BLOOD TYPE ARTERIAL; DRAW SITE R RADIAL; METHB 1.7 % (0.0-1.5); SAMPLE BLOOD; SAO2 86.1 % (95.0-100.0); THB 11.2 g/dL (11.5-17.4); pH(98.6) 7.36 (7.35-7.45)
[2017-01-01 09:50] LABS: MODALITY VENTILATOR; PCO2(98.6) 84 mmHg (35-45)
[2017-01-01 09:51] LABS: PO2(98.6) 49 mmHg (60-100)
[2017-01-01] MEDS: VERSED IV PRN ×4 (09:55→23:10)
--- NOTE | 2017-01-01 16:17 | PROGRESS NOTE ---
DATE: 01/01/2017 SUBJECTIVE: Today Ms. Lazaro continues to be under the vent. I understand she failed the weaning trial. OBJECTIVE: Vital signs: Blood pressure is 104/55, pulse of 74, respirations 18, temperature is 96.9 degrees. General: Ms. Lazaro is a 76-year-old female. She is in bed, intubated and synchronized well with the ventilator. HEENT: Mucosa is pink and moist. Anicteric. Acyanotic. Neck: Supple. Chest: Air entry is bilaterally reduced, more so to the left. There are bilateral crepitations. Cardiovascular: Regular rate and rhythm. There is about 3/6 murmur and also 2/6 TR murmur. Abdomen: Distended, but nontender. No hepatosplenomegaly. Extremities: No pedal edema. MANAGEMENT COORDINATOR: Patient is sedated and sleeping. LABORATORY DATA: Reviewed. No concern except for platelet count all of 112,000, slightly better than yesterday. Chemistry is reviewed. Bicarb is 41, phosphorus is 2.5, magnesium is 1.3 and a potassium is 3.4. CURRENT MEDICATIONS: 1. Hydrocortisone 50 IV q.6. 2. Dilaudid p.r.n. 3. Levofloxacin 150 IV q.24. 4. Versed. ASSESSMENT: 1. Mixed respiratory failure, both hypoxemic and hypercarbic. Patient continues to be intubated and failed the weaning trial. 2. Non-small cell lung cancer to left main bronchus. 3. Pseudomonas left postobstructive pneumonia. Patient has been on antibiotics for more than 2 weeks. We will therefore discontinued that. 4. Atrial fibrillation with rapid ventricular response, new onset. Currently rate controlled. 5. Severe aortic stenosis. The patient has been evaluated by Surgery and she is considered a nonsurgical candidate. 6. Diabetes mellitus. 7. Protein calorie malnutrition. 8. Electrolyte imbalance, including hypokalemia, hypomagnesemia and hypophosphatemia. We will replace all of that. PLAN: I think the main concern in the care of this patient at this point, is being able to come off of the vent which I think is going to be a challenge because of her underlying malignancy, which is predominantly on the left, but a recent computed tomography angiography shows that there has been some right-sided involvement as well. As I said, the patient has already gotten more than 14 days of IV antibiotics for pneumonia. We will therefore discontinue the antibiotics. I did explain to the family members that Ms. Lazaro is very critical and that she probably will not be able to come off of the vent because of the underlying disease and that we need to look beyond the current situation to make an objective decision in terms of their wishes going forward. Palliative Medicine is also involved and will follow up with them for further guidance.
[2017-01-01] MEDS: PROTONIX IV SCH (16:23)
[2017-01-01] MEDS: SODIUM CHLORIDE 0.9% INJ SCH (16:23)
[2017-01-01] MEDS: LEVOPHED 8 MG in D5 1/2 NS 250 ML IV SCH (19:07)
[2017-01-02] MEDS: DILAUDID IV PRN ×5 (01:06→12:44)
[2017-01-02] MEDS: SOLU-CORTEF IV SCH ×2 (02:07→09:03)
[2017-01-02] MEDS: DUONEB (A & A) INH SCH ×2 (03:31→08:06)
[2017-01-02 04:54] LABS: ALLEN TEST YES; BE 20.7 mmoll (-3.0-3.0); BLOOD TYPE ARTERIAL; DRAW SITE R RADIAL; METHB 0.6 % (0.0-1.5); O2(CT) 12.5 mL/dL (15.0-23.0); PO2(98.6) 78 mmHg (60-100); SAMPLE BLOOD; SAO2 99.7 % (95.0-100.0); SRATE 12 BPM; THB 9.2 g/dL (11.5-17.4); TVOL 500 mL; pH(98.6) 7.48 (7.35-7.45)
[2017-01-02 04:56] LABS: MODALITY VENTILATOR; PCO2(98.6) 63 mmHg (35-45)
[2017-01-02] MEDS: HUMALOG SUBQ SCH ×2 (06:11→11:50)
[2017-01-02 06:48] LABS: EOS# 0.03 X1000 (0.0-0.7); EOS% 0.3 % (0.0-10.0); HEMOGLOBIN 9.8 g/dL (12.0-16.0); IMM GRAN# 0.02 X1000 (0.0-0.04); IMM GRAN% 0.2 % (0.0-0.5); LYMPH# 0.17 X1000 (1.2-3.4); LYMPH% 1.7 % (20.5-51.1); MANUAL DIFF NEEDED? YES; MCH 30.6 PG (27-31); MCHC 31.6 g/dL (33-37); MCV 96.9 FL (81-99); MONO# 0.63 X1000 (0.11-0.59); MONO% 6.1 % (1.7-9.3); MPV 10.6 FL (7.4-10.4); NEUT% 91.7 % (42.2-75.2); PLT 136 X1000 (130-400)
[2017-01-02 07:20] LABS: AGAP 5; BANDS 4 % (0-1); BUN 21 mg/dL (8-22); CALCIUM 7.9 mg/dL (8.8-10.2); CHLORIDE 92 mmol/L (98-107); COSMO 289; LYMPHS 2 % (21-51); MONO 6 % (1-9); POTASSIUM 3.7 mmol/L (3.5-5.1); SODIUM 140 mmol/L (136-145); TCO2 43 mmol/L (25-35)
--- NOTE | 2017-01-02 07:42 | Diag Imaging Result Document ---
PROCEDURE NAME: CHEST-1 VIEW - 01/02/2017 SINGLE FRONTAL RADIOGRAPH OF THE CHEST: COMPARISON: 01/01/2017. FINDINGS: Right chest port and ET tube are in stable position. NG tube projects below the diaphragm and out of the field of view. There is stable volume loss on the left. Diffuse infiltrate throughout the left lung is stable to marginally worsened. Ill-defined interstitial infiltrate on the right is approximately stable. No new consolidation is identified. Cardiac silhouette is stable. IMPRESSION: Eultny-ea-[id number] worsening of infiltrate throughout the left lung. Essentially stable, otherwise.
[2017-01-02] MEDS ORDERED: ATIVAN IV ONE (11:22)
[2017-01-02 13:28] VITALS: BP 112/69
--- NOTE | 2017-01-03 14:18 | DISCHARGE SUMMARY ---
ADMISSION DATE: 12/16/2016 DISCHARGE DATE: 01/02/2017 DATE OF : 01/02/2017. TIME OF : 13:50. CONSULTATION DURING THIS ADMISSION: Pulmonary medicine was consulted. Patient was seen by Dr. Tucker. Hematology/Oncology was consulted. Patient was seen by Dr. Garcias. Cardiology was consulted. Patient was seen by Dr. Acosta. Palliative Medicine was consulted. INVASIVE PROCEDURES DONE DURING THIS ADMISSION: None. IMAGING STUDIES OF SIGNIFICANCE: A CTA of the lungs was done on presentation which showed no evidence of pulmonary emboli. Metastatic disease and other changes. Multiple chest x-rays were done after the patient got intubated. ADMISSION DIAGNOSES: 1. Sepsis. 2. Pneumonia. 3. Non-small cell lung cancer. 4. Diabetes mellitus. 5. Severe protein calorie malnutrition. DIAGNOSES AT THE TIME OF : 1. Acute mixed respiratory failure (both hypoxemic and hypercarbic). 2. Advanced non-small cell cancer to left main bronchus with metastasis to the right lungs as well. 3. Left post obstructive pseudomonal pneumonia. 4. New onset atrial fibrillation with rapid ventricular response. 5. Severe aortic stenosis. 6. Diabetes mellitus type 2. 7. Protein calorie malnutrition. PRESENTING COMPLAINT: Hypotension. HISTORY OF PRESENTING COMPLAINT: Ms. Lazaro is a 76-year-old female, who presented to the emergency department because of shortness of breath and low blood pressure. The patient went to the paraffiner's office for her regular therapy and was found to be severely hypotensive so was sent to the hospital. Upon presentation patient's blood pressures were in the 75-80s/39-46 range. The patient was subsequently admitted to [facility] for higher care. HOSPITAL COURSE: The patient was admitted and treated in regular fashion with IV antibiotics, and all her electrolytes were corrected. Pulmonary medicine was consulted and her hematology/oncology physicians were also consulted. During the hospital course the patient developed atrial fibrillation with RVR, which Cardiology was consulted for that. The patient was started on rate control medications which controlled her rate. The patient had an echocardiogram which showed a severe aortic stenosis which would normally warrant surgical evaluation but because of the advanced nature of her cancer she was determined to be nonsurgical candidate by the paraffiner. Patient was ready to be discharged home on hospice but then coded on the floor, and that time the family members wanted everything to be done so was intubated and sent to ICU. During the ICU stay patient did not show any remarkable progress and discussions were held every day with the palliative team with the family members as well as all the other physicians who had been involved in her care. Ultimately today the publications production supervisor spoke with them about the futility of the care and the fact that the patient has not shown any improvement, and there was a decision to do a compassionate extubation. I was called by the nurse at 13:50 that the patient and had a flat line, did not have any signs of vitality. Patient was subsequently pronounced by the two nurses.
== END 2017-01-02 16:00 | disposition expired | DRG 870 ==
LOC: ED 10:33 → EDIPHOLD 16:28 → ICU 18:32 → 4N 12-17 14:19 → 3S 12-20 12:48 → ICU 12-24 23:48
PROVIDERS: ATTEND Internal Medicine
PROC: 5A1955Z Respiratory Ventilation, Greater than 96 Consecutive Hours (ICD-10-PCS; principal; 2016-12-24)
PROC: 5A12012 Performance of Cardiac Output, Single, Manual (ICD-10-PCS; 2016-12-24)
PROC: 0BH17EZ Insertion of Endotracheal Airway into Trachea, Via Natural or Artificial Opening (ICD-10-PCS; 2016-12-24)
DX: A41.9 Sepsis, unspecified organism (principal); E43 Unspecified severe protein-calorie malnutrition; I50.33 Acute on chronic diastolic (congestive) heart failure; J15.1 Pneumonia due to Pseudomonas; J96.01 Acute respiratory failure with hypoxia; J96.02 Acute respiratory failure with hypercapnia; C79.9 Secondary malignant neoplasm of unspecified site; I11.0 Hypertensive heart disease with heart failure; E83.42 Hypomagnesemia; C34.91 Malignant neoplasm of unspecified part of right bronchus or lung; C34.92 Malignant neoplasm of unspecified part of left bronchus or lung; J44.0 Chronic obstructive pulmonary disease with (acute) lower respiratory infection; E87.1 Hypo-osmolality and hyponatremia; I48.91 Unspecified atrial fibrillation; E11.9 Type 2 diabetes mellitus without complications; I35.0 Nonrheumatic aortic (valve) stenosis; Z87.891 Personal history of nicotine dependence; K21.9 Gastro-esophageal reflux disease without esophagitis; Z90.49 Acquired absence of other specified parts of digestive tract; E87.6 Hypokalemia; R59.0 Localized enlarged lymph nodes; E83.39 Other disorders of phosphorus metabolism; M19.90 Unspecified osteoarthritis, unspecified site; Z82.49 Family history of ischemic heart disease and other diseases of the circulatory system; Z68.23 Body mass index [BMI] 23.0-23.9, adult
CPT/HCPCS: 31500; 71010; 71020; 71275; 74000; 80048; 80053; 81001; 82533; 82550; 82805; 82948; 83036; 83735; 83880; 84100; 84134; 84439; 84443; 84484; 85025; 85027; 85379; 85610; 85730; 87040; 87070; 87077; 87186; 87205; 92950; 93005; 93010; 93306; 94002; 94003; 94150; 94640; 94660; 94667; 94668; 94761; 94762; 94799; 96365; 96366; 96367; 96368; 96372; 96375; C9113; J0282; J1160; J1170; J1630; J1650; J1720; J1815; J1940; J2060; J2250; J2405; J2543; J2930; J3370; J3475; J3480; J7030; J7040; J7042; J7050; J7060; Q9967; 97116-GP; 97530-GP; 99285-25; S0164